=== PATIENT | male | born 1975 | race Hispanic/Latino ===

== ENCOUNTER 2024-01-29 16:31 | Inpatient (IN) | payer BC ==
[~2024-01-29] VITALS: Ht 177.8 cm; Wt 117.3 kg
[2024-01-29 17:04] LABS: BASOPHILS # (AUTO) 0.02 K/uL (0.00-0.20); BASOPHILS % (AUTO) 0.2 % (0.0-5.0); EOSINOPHILS # (AUTO) 0.05 K/uL (0.00-0.70); EOSINOPHILS % (AUTO) 0.6 % (0.0-8.0); IMMATURE GRANULOCYTE ABSOLUTE 0.02 K/uL (0-1); LYMPHOCYTES # (AUTO) 0.5 K/uL (1.0-4.8); LYMPHOCYTES % (AUTO) 5.2 % (21.0-51.0); MEAN CORPUSCULAR HEMOGLOBIN 25.9 pg (27.0-33.0); MEAN CORPUSCULAR HGB CONC 31.7 g/dL (32.0-36.0); MEAN CORPUSCULAR VOLUME 81.6 fL (79-99); MONOCYTES # (AUTO) 0.7 K/uL (0.1-1.0); MONOCYTES % (AUTO) 7.2 % (3.0-13.0); NEUTROPHILS # (AUTO) 7.8 K/uL (1.8-7.7); NEUTROPHILS % (AUTO) 86.6 % (40.0-77.0); PLATELET COUNT (AUTO) 268 K/uL (130-400); RED BLOOD CELL COUNT(AUTO) 4.29 MIL/uL (4.50-6.20); RED CELL DISTRIBUTION WIDTH 15.9 % (11.0-15.5)
--- NOTE | 2024-01-29 17:04 | EKG ---
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
--- NOTE | 2024-01-29 17:08 | ERN ---
General Chief Complaint: Shortness of Breath Stated Complaint: SOB X ONE MONTH Time Seen by MD: 16:32 Source: patient History of Present Illness Initial Comments Patient is a 48-year-old male coming in to be evaluated for shortness of breath. Patient states he was recently diagnosed with pneumonia. Patient was seen at another hospital and states she was being evaluated for possible tuberculosis. Patient states he could not wait any longer and left. Allergies: Coded Allergies: No Known Allergies (Unverified Allergy, Unknown, 01/29/24) Past Medical History Past Medical History: CHF, Heart Disease, Hypertension Medical History Other: LYME DISEASE Past Surgical History: Appendectomy Surgical History Other: SHOULDER ROS Dictation CONSTITUTIONAL: No chills, no fever, no weakness, no diaphoresis, no malaise. HEAD/FACE: No signs of trauma. EENT: No eye pain, no blurred vision, no tearing, no double vision, no ear pain, no ear discharge, no nose pain, no nasal congestion, no throat pain, no throat swelling, no mouth pain. RESPIRATORY: No cough, no orthopnea, no SOB, no stridor, no wheezing. CARDIOVASCULAR: No chest pain, no edema, no palpitations, no syncope. GASTROINTESTINAL/ABDOMINAL: No abdominal pain, no constipation, no diarrhea, no nausea, no vomiting. GENITOURINARY: No abnormal discharge, no dysuria, no frequent urination, no hematuria. No complaints of pain in the genitals. MUSCULOSKELETAL: No back pain, no gout, no joint pain, no joint swelling, no muscle pain, no muscle stiffness, no neck pain. INTEGUMENTARY: No change in color, no change in hair/nails, no dryness, no lesion, no lumps, no rash. NEUROLOGICAL/PSYCH: No anxiety, not depressed, no emotional problem, no headache, no numbness, no pre-existing deficit, no history of seizures, no tremors, no weakness. HEMATOLOGIC/LYMPHATIC: Not anemic, no history of blood clots, no apparent bleeding, no bruising, glands not swollen. All Systems Negative, Except as Noted. Physical Exam Physical Exam Dictation VITAL SIGNS: Reviewed. GENERAL APPEARANCE: Alert, oriented x3, no acute distress, obese. HEAD AND FACE: Non-traumatic. EYES: PERRL, pink conjunctivas, eyelid no trauma, anterior chamber clear. EARS: Pinnas intact and no signs of trauma or erythema. Ear canals clear and no discharge. TMs no erythema. NOSE: No discharge, no bleeding. OROPHARYNX: Mouth normal, teeth no caries, tongue pink. Pharynx clear, no erythema. Tonsils no exudates, no abscesses noted. Mucous membrane moist. NECK: Supple, non-tender, no thyromegaly, no masses, no JVD, no bruits. BREAST: Deferred. CHEST: No tenderness, no crepitus, no paradoxical movement, no retractions. LUNGS: Clear, well-ventilated, symmetric, no rales, no wheezing, no rhonchi, no stridor, good breath sounds bilaterally. HEART: Regular rate, regular rhythm, no murmur, no gallops. VASCULAR: No peripheral edema. ABDOMEN: Soft, positive bowel sounds, nondistended, no guarding, nontender, no rebound, no masses no hepatomegaly, no splenomegaly, no Jaimes's sign, no hernias. RECTAL: Deferred. GENITAL: Deferred. NEUROLOGICAL: Normal speech, gross motor function intact, gross sensory function intact. MUSCULOSKELETAL: Neck nontender, full range of motion, back nontender, full r matthew of motion. EXTREMITIES: Nontender, full range of motion. SKIN: Color pink, dry, no turgor, no rash, no lacerations, no abrasions, no contusions. LYMPHATICS: Deferred. Results Laboratory and Microbiology Lab and Micro Result Laboratory Tests Test 01/29/24 16:55 01/29/24 17:00 White Blood Count 9.0 K/uL (4.8-10.8) Red Blood Count 4.29 MIL/uL (4.50-6.20) L Hemoglobin 11.1 g/dL (14.0-18.0) L Hematocrit 35.0 % (42-54) L Mean Corpuscular Volume 81.6 fL (79-99) Mean Corpuscular Hemoglobin 25.9 pg (27.0-33.0) L Mean Corpuscular Hemoglobin Concent 31.7 g/dL (32.0-36.0) L Red Cell Distribution Width 15.9 % (11.0-15.5) H Platelet Count 268 K/uL (130-400) Mean Platelet Volume 10.6 fL (7.5-10.5) H Immature Granulocyte % (Auto) 0.2 % (0-1) Neutrophils (%) (Auto) 86.6 % (40.0-77.0) H Lymphocytes (%) (Auto) 5.2 % (21.0-51.0) L Monocytes (%) (Auto) 7.2 % (3.0-13.0) Eosinophils (%) (Auto) 0.6 % (0.0-8.0) Basophils (%) (Auto) 0.2 % (0.0-5.0) Neutrophils # (Auto) 7.8 K/uL (1.8-7.7) H Lymphocytes # (Auto) 0.5 K/uL (1.0-4.8) L Monocytes # (Auto) 0.7 K/uL (0.1-1.0) Eosinophils # (Auto) 0.05 K/uL (0.00-0.70) Basophils # (Auto) 0.02 K/uL (0.00-0.20) Absolute Immature Granulocyte (auto 0.02 K/uL (0-1) Nucleated Red Blood Cells 0.0 % (0.0-0.19) White Cell Morphology Comment See comments Prothrombin Time 12.6 SEC (9.6-11.6) H Prothromb Time International Ratio 1.18 (0.85-1.15) H Activated Partial Thromboplast Time 24.2 SEC (26.3-35.5) L Sodium Level 137 mmol/L (136-145) Potassium Level 4.1 mmol/L (3.5-5.1) Chloride Level 102 mmol/L (101-111) Carbon Dioxide Level 28 mmol/L (21-32) Blood Urea Nitrogen 11 mg/dL (7-18) Creatinine 1.2 mg/dL (0.5-1.3) Glomerular Filtration Rate Calc 75 mL/min (>90) Random Glucose 100 mg/dL (70-105) Lactic Acid Level 2.3 mmol/L (0.8-2.5) Total Calcium 8.1 mg/dL (8.5-10.1) L Magnesium Level 1.90 mg/dL (1.80-2.40) Total Creatine Kinase 451 U/L (21-232) *H Troponin I High Sensitivity 46 ng/L (4-75) B-Type Natriuretic Peptide 773 pg/mL (0-100) H Influenza Type A Antigen Negative For Type A Influenza Type B Antigen Negative For Type B SARS-CoV-2, RNA, NAAT NEGATIVE SARS CoV-2 Labs Reviewed?: Yes EKG/XRAY/US/CT/MRI EKG Comment 01/29/2024 time 1703 Ventricular rate 116 Sinus tachycardia [place] [address] wave elevation or depression X-RAY Comment [address] [place] [address] IMAGING REPORT Signed PATIENT: PRATEEK FERNANDEZ MR#: [id number] : 1975 SEX: M AGE: 48 LOCATION: [facility] ORDER [id number] STATUS: [facility] ER REPORT#: [id number] SERVICE 163 REASON: chest ORDERING PHYSICIAN: PRASHANT FLANAGAN MD PROCEDURE: CXR1VW - CHEST 1VW CHEST 1VW REASON: chest COMPARISON: None. FINDINGS: There is mild cardiomegaly accentuated by lordotic projection. There is some focal infiltrate in the right upper lobe which could be early or mild pneumonia. There is no pulmonary vascular congestion. There are no pleural effusions any thorax appears normal. IMPRESSION: 1. Right upper lobe infiltrate which could be early or mild pneumonia. 2. Mild cardiomegaly accentuated by a lordotic projection. DICTATED BY: ROSE GRAHAM MD DATE: 01/29/241726 ELECTRONICALLY SIGNED BY: ROSE GRAHAM MD DATE: 01/29/24 173 MDM MDM: Differential diagnosis: PULMONARY INFILTRATES, RIGHT LUNG PNEUMONIA, RULE OUT TB Rationale: Tests considered and ordered secondary to shared decision making include: Previous outside records reviewed: Old ER visits. Risk of complication and/or morbidity or mortality of patient management: None Medications-Per medication reconciliation Need for hospitalization: Patient does meet criteria for hospitalization. Need for emergency major/minor surgery: No There are no social concerns with this patient. Prescription drug management Prescriptions will include symptomatic care Patient's prior external medical records from other ER visits were reviewed by me as indicated. Prior testing and results from previous visits were reviewed. Prior tests were taken into account with medical decision making and resource utilization, independent historian/historians were used to obtain complete medical history. I independently interpreted the test that were performed, results were reviewed by me and considered findings on radiology if ordered. Medical management and examination interpretation discussions were had by me with other qualified healthcare professionals as indicated for the patient's care. BE ADMITTED UNDER THE CARE OF [facility] FOR ONGOING MANAGEMENT OF RIGHT SIDED PULMONARY INFILTRATES SUGGESTIVE OF PNEUMONIA VERSUS EARLY TUBERCULOSIS. ED Course Orders Procedure Category Date Status Time Cbc With Differential LAB 01/29/24 Complete 16:38 Prothrombin Time With LAB 01/29/24 Complete INR 16:38 B-Type Natriuretic LAB 01/29/24 Complete Peptide 16:38 Chest 1vw RAD 01/29/24 Resulted 16:38 12 Lead Ekg Tracing- EKG 01/29/24 Complete Technical 16:38 Magnesium LAB 01/29/24 Complete 16:38 Creatine Kinase, Total LAB 01/29/24 Complete 16:38 Troponin I High LAB 01/29/24 Complete Sensitivity 16:38 Urinalysis Profile LAB 01/29/24 Logged 16:38 Partial LAB 01/29/24 Complete Thromboplastin Time 16:38 Basic Metabolic Panel LAB 01/29/24 Complete 16:38 Covid Rna Naat LAB 01/29/24 Complete 16:40 Influenza Type A & B, LAB 01/29/24 Complete Rapid 16:40 Blood Cult ELADIO 01/29/24 In Process 16:41 Culture Urine ELADIO 01/29/24 Logged 16:41 Lactic Acid LAB 01/29/24 Complete 16:41 Ceftriaxone 1g Vial PHA 01/29/24 Complete (Rocephine 1g Inj) 18:00 Azithromycin 500mg+Ns PHA 01/29/24 In Process 250ml (Azithromyci 17:49 Current Medications Medications (Trade) Dose Ordered Sig/Ramon Route PRN Reason Start Time Stop Time Status Last Admin Dose Admin Azithromycin 250 ml @ 250 mls/hr Q24H STAT IVPB 01/29/24 17:49 01/29/24 18:48 01/29/24 18:05 Ceftriaxone Sodium (ROCEphine 1G INJ) 1 gm ONCE ONCE IVPB 01/29/24 18:00 01/29/24 18:01 DC 01/29/24 18:05 Vital Signs Date Time Temp Pulse Resp B/P (MAP) Pulse Ox O2 Delivery O2 Flow Rate FiO2 01/29/24 17:07 116 26 112/61 96 Nasal Cannula* 2 28 01/29/24 16:32 101.3 117 20 138/93 95 Room Air 0 Critical Care Note Comments CRITICAL CARE PROCEDURE NOTE AUTHORIZED AND PERFORMED BY: ME TOTAL CRITICAL CARE TIME: APPROXIMATELY 36 MINUTES DUE TO A HIGH PROBABILITY OF CLINICALLY SIGNIFICANT, LIFE THREATENING DETERIORATION, THE PATIENT REQUIRED MY HIGHEST LEVEL OF PREPAREDNESS TO INTER VENE EMERGENTLY AND I PERSONALLY SPENT THIS CRITICAL CARE TIME DIRECTLY AND PERSONALLY MANAGING THE PATIENT. THIS CRITICAL CARE TIME INCLUDED OBTAINING A HISTORY; EXAMINING THE PATIENT; PULSE OXIMETRY; ORDERING AND REVIEW OF STUDIES; ARRANGING URGENT TREATMENT WITH DEVELOPMENT OF A MANAGEMENT PLAN; EVALUATION OF PATIENT'S RESPONSE TO TREATMENT; FREQUENT REASSESSMENT; AND, DISCUSSIONS WITH OTHER PROVIDERS. THIS CRITICAL CARE TIME WAS PERFORMED TO ASSESS AND MANAGE THE HIGH PROBABILITY OF IMMINENT, LIFE-THREATENING DETERIORATION THAT COULD RESULT IN MULTI-ORGAN FAILURE. IT WAS EXCLUSIVE OF SEPARATELY BILLABLE PROCEDURES AND TREATING OTHER PATIENTS AND TEACHING TIME. PLEASE SEE MDM SECTION AND THE REST OF THE NOTE FOR FURTHER INFORMATION ON PATIENT ASSESSMENT AND TREATMENT. DX & DISP Disposition: Inpatient Decision to Admit Time: 18:42 Departure Impression: Primary Impression: Pneumonia involving right lung Additional Impressions: Tuberculosis, Sepsis Condition: Stable PRASHANT FLANAGAN MD Jan 29, 2024 17:08
[2024-01-29 17:20] LABS: INR 1.18 (0.85-1.15); PROTHROMBIN TIME 12.6 SEC (9.6-11.6)
[2024-01-29 17:21] LABS: B-TYPE NATRIURETIC PEPTIDE 773 pg/mL (0-100); PARTIAL THROMBOPLASTIN TIME 24.2 SEC (26.3-35.5)
[2024-01-29 17:28] LABS: CREATININE 1.2 mg/dL (0.5-1.3); POTASSIUM 4.1 mmol/L (3.5-5.1)
--- NOTE | 2024-01-29 17:30 | HMCIMG ---
CHEST 1VW REASON: chest COMPARISON: None. FINDINGS: There is mild cardiomegaly accentuated by lordotic projection. There is some focal infiltrate in the right upper lobe which could be early or mild pneumonia. There is no pulmonary vascular congestion. There are no pleural effusions any thorax appears normal. IMPRESSION: 1. Right upper lobe infiltrate which could be early or mild pneumonia. 2. Mild cardiomegaly accentuated by a lordotic projection.
[2024-01-29 17:42] LABS: MAGNESIUM 1.9 mg/dL (1.80-2.40)
[2024-01-29 17:54] LABS: INFLUENZA TYPE A Negative For Type A (NEGATIVE); INFLUENZA TYPE B Negative For Type B (NEGATIVE)
[2024-01-29 18:04] LABS: SARS-CoV-2, RNA, NAAT NEGATIVE SARS CoV-2 (NEGATIVE)
[2024-01-29] MEDS: AZITHROMYCIN 500MG+NS 250ML 250 ML IVPB STA (18:05)
[2024-01-29] MEDS: cefTRIAXone 1G VIAL IVPB ONE (18:05)
[2024-01-29] MEDS ORDERED: doCUSate SODIUM 100 MG CAP PO PRN (19:00)
[2024-01-29] MEDS ORDERED: acetaMINOPHEN 650 MG SUPPOSITORY RC PRN (19:00)
[2024-01-29] MEDS ORDERED: LAbetaLOL 20MG SYG IV PRN (19:00)
[2024-01-29] MEDS ORDERED: hydrALAZine 20MG/ML VIAL IV PRN (19:00)
--- NOTE | 2024-01-29 19:04 | HP ---
[facility] PH[facility] Date of Service: Jan 29, 2024 Time of Service: 19:03 Attending/supervising physicians: Dr. Real and Dr. Harshal Fitzpatrick HISTORY OF PRESENT ILLNESS: Mr. Eldridge is a 48-year-old male with history of CHF, heart disease, hypertension, Lyme disease who presented to [facility] ED for evaluation of worsening shortness of breath. Patient patient reported that he presented to [facility] ED on 01/11/2024 evening was admitted diagnosed with pneumonia and was placed on isolation for evaluated for possible tuberculosis. IP [facility] patient was receiving Zithromax IV, Rocephin IV, and Solu- Medrol. The patient reports that he did not like the care of a [facility] and left AMA on 01/13/2024. at bedside reports that the sputum results for TB were never done and they were never updated on the patient's status therefore the patient left AMA. EKG: Sinus tachycardia, heart rate 116 beats per minute. Chest x-ray: 1. Right upper lobe infiltrate which could be early or mild pneumonia. 2. Mild cardiomegaly accentuated by a lordotic projection. Remarkable lab results: Hemoglobin 11.1, hematocrit 35.0, RBC 4.29. Lactic acid 2.3, GFR 75, total calcium 8.1, magnesium 1.9, CK 451, BNP 773. In ED patient received Rocephin1 g IV, azithromycin 500 mg IV, Tylenol 650 mg. ED provider reported that sepsis alert the patient presented to the ED with a temperature 101.3F, heart rate 117, respirations 20 bpm, BP 138/93, 95% on room air, which prompted the system for sepsis alert. ED physician request patient be admitted with the diagnosis of pneumonia involving right lung, right-sided pulmonary infiltrates suggestive of pneumonia versus early tuberculosis, and sepsis. REVIEW OF SYSTEMS 12-point ROS reviewed with patient. All pertinent positives mentioned above. Otherwise negative, nonpertinent, or noncontributory. Past Medical History: CHF, Heart Disease, Hypertension, Lyme disease Past Surgical History: Appendectomy, shoulder surgery Past social history: Denied alcohol, tobacco + use of cocaine and marijuana Coded Allergies: No Known Allergies (Unverified Allergy, Unknown, 01/29/24) PHYSICAL EXAM GENERAL APPEARANCE: The patient is awake, alert, and oriented, in no acute cardiopulmonary distress. NEUROLOGICAL: Cranial nerves II-XII grossly intact. Motor is 5/5 in bilateral upper and lower extremities proximal to distal. No sensory deficits. HEENT: Face is symmetric. Pupils are equal and reactive. Extraocular movements are intact. NECK: Supple. No JVD. No thyromegaly. No submental, submandibular, pre- /postauricular, occipital or supraclavicular lymphadenopathy. CHEST: Normal chest expansion. No Telemetry. LUNGS: Diminished. Breathing is even and unlabored at rest. Absence of any rales, rhonchi or any wheezing. CARDIOVASCULAR: Regular. S1 and S2 normal. No appreciable rubs, murmurs or g allops. ABDOMEN: Soft, nontender, and nondistended. There is no rebound, voluntary gua rding, or rigidity. : Deferred. No Jesus. EXTREMITIES: Non-edematous and not cyanotic. No clubbing. Good capillary refill. SKIN: No skin breakdown. Vital Sign (Last 24 Hours) 01/29/24 01/29/24 16:32 17:07 Temp 101.3 Pulse 116 Resp 26 B/P (MAP) 112/61 Pulse Ox 96 O2 Delivery Nasal Cannula* O2 Flow Rate 2 FiO2 28 LABS: Laboratory: Test 01/29/24 17:00 01/29/24 16:55 Range/Units Influenza Type A Antigen Negative For Type A NEGATIVE Influenza Type B Antigen Negative For Type B NEGATIVE SARS-CoV-2, RNA, NAAT NEGATIVE SARS CoV-2 NEGATIVE White Blood Count 9.0 4.8-10.8 K/uL Red Blood Count 4.29 L 4.50-6.20 MIL/uL Hemoglobin 11.1 L 14.0-18.0 g/dL Hematocrit 35.0 L 42-54 % Mean Corpuscular Volume 81.6 79-99 fL Mean Corpuscular Hemoglobin 25.9 L 27.0-33.0 pg Mean Corpuscular Hemoglobin Concent 31.7 L 32.0-36.0 g/dL Red Cell Distribution Width 15.9 H 11.0-15.5 % Platelet Count 268 130-400 K/uL Mean Platelet Volume 10.6 H 7.5-10.5 fL Immature Granulocyte % (Auto) 0.2 0-1 % Neutrophils (%) (Auto) 86.6 H 40.0-77.0 % Lymphocytes (%) (Auto) 5.2 L 21.0-51.0 % Monocytes (%) (Auto) 7.2 3.0-13.0 % Eosinophils (%) (Auto) 0.6 0.0-8.0 % Basophils (%) (Auto) 0.2 0.0-5.0 % Neutrophils # (Auto) 7.8 H 1.8-7.7 K/uL Lymphocytes # (Auto) 0.5 L 1.0-4.8 K/uL Monocytes # (Auto) 0.7 0.1-1.0 K/uL Eosinophils # (Auto) 0.05 0.00-0.70 K/uL Basophils # (Auto) 0.02 0.00-0.20 K/uL Absolute Immature Granulocyte (auto 0.02 0-1 K/uL Nucleated Red Blood Cells 0.0 0.0-0.19 % White Cell Morphology Comment See comments Prothrombin Time 12.6 H 9.6-11.6 SEC Prothromb Time International Ratio 1.18 H 0.85-1.15 Activated Partial Thromboplast Time 24.2 L 26.3-35.5 SEC Sodium Level 137 136-145 mmol/L Potassium Level 4.1 3.5-5.1 mmol/L Chloride Level 102 101-111 mmol/L Carbon Dioxide Level 28 21-32 mmol/L Blood Urea Nitrogen 11 7-18 mg/dL Creatinine 1.2 0.5-1.3 mg/dL Glomerular Filtration Rate Calc 75 >90 mL/min Random Glucose 100 70-105 mg/dL Lactic Acid Level 2.3 0.8-2.5 mmol/L Total Calcium 8.1 L 8.5-10.1 mg/dL Magnesium Level 1.90 1.80-2.40 mg/dL Total Creatine Kinase 451 *H 21-232 U/L Troponin I High Sensitivity 46 4-75 ng/L B-Type Natriuretic Peptide 773 H 0-100 pg/mL Current Medications Medications (Trade) Dose Ordered Sig/Ramon Route PRN Reason Start Time Stop Time Status Last Admin Dose Admin Acetaminophen (TYLenol 325MG TAB) 650 mg Q6H PRN PO FEVER/MILD PAIN LEVEL 1-3 01/29/24 19:00 02/28/24 18:59 UNV Acetaminophen (TYLenol 650MG SUPPOSITORY) 650 mg Q6H PRN RC FEVER / MILD PAIN 1-3 IF NPO 01/29/24 19:00 02/28/24 18:59 UNV Azithromycin 250 ml @ 250 mls/hr Q24H STAT IVPB 01/29/24 17:49 01/29/24 18:48 DC 01/29/24 18:05 250 MLS/HR Ceftriaxone Sodium (ROCEphine 1G INJ) 1 gm DAILY15 IVP 01/30/24 15:00 02/09/24 14:59 UNV Docusate Sodium (COLace 100MG CAP) 100 mg BID PRN PO c 01/29/24 19:00 02/28/24 18:59 UNV Doxycycline Hyclate (Doxycycline 100mg+NS 250ml) 100 mg BID IV 01/29/24 23:00 02/08/24 22:59 UNV Enoxaparin Sodium (Lovenox) 40 mg DAILY SQ 01/30/24 09:00 02/29/24 08:59 UNV Famotidine (Pepcid 20mg Tab) 20 mg BID PO 01/29/24 21:00 02/28/24 20:59 UNV Hydralazine HCl (APRESOLine 20MG INJ) 10 mg Q6H PRN IV SBP GREATER THAN 180 01/29/24 19:00 02/28/24 18:59 UNV Insulin Human Regular (humuLIN R 100 UNIT/ML 3ML) INSULIN SLIDING SCAL... ACHS SQ 01/29/24 21:00 02/28/24 20:59 UNV Labetalol HCl (TRANdate 20MG SYG) 10 mg Q2H PRN IV SBP GREATER THAN 160 01/29/24 19:00 02/28/24 18:59 UNV Lactulose (Constulose 20gm/ 30ml Udcup) 20 gm Q6H PRN PO CONSTIPATION 01/29/24 19:00 02/28/24 18:59 UNV Ondansetron HCl (zoFRAN 4MG INJ) 4 mg Q6H PRN IVP NAUSEA/VOMITING 01/29/24 19:00 02/28/24 18:59 UNV Temazepam (restORIL 15 MG CAP) 15 mg HS PRN PO INSOMNIA/SLEEP 01/29/24 19:00 02/28/24 18:59 UNV DIAGNOSTICS / RADIOLOGY: [ ] ASSESSMENT: CHF exacerbation LVEF 20-25%, per [facility] echo on 01/13/2024 Grade 3 diastolic dysfunction, per [facility] echo on 01/13/2024 Multifocal pneumonia possible secondary to crack lung secondary to cocaine use Lung Infiltrates, rule out TB Negative for PE, per CTA on 01/11/2024 at [facility] Respiratory alkalosis Rhabdomyolysis, CK 451 Acute on chronic kidney disease, GFR 75 Anemia chronic disease Polysubstance abuse, + cocaine on 01/29/24 Hypertension Coronary artery disease Obese, BMI 37.4 History of lyme disease History of a polysubstance abuse positive cocaine and THC PLAN: -Admit to Medical floor with continuous telemetry monitoring -Monitor respiratory status closely. -Continue oxygen therapy as needed. Titrate oxygen prn to keep Spo2>/+=92%. - Start Zyrtec 10 mg p.o. q.h.s.. - Start Mucomyst 400 mg p.o. q.6 hours. - Start albuterol inhaler q.6 hours scheduled. -RT to provide IS and education on use. -Robitussin DM as needed cough. -Robitussin AC q.h.s. -Solu-Medrol IV daily. -CIWA -Aspirin 81 mg daily -Atorvastatin 40 mg daily. -Lasix 20 mg IV. b.i.d. in a.m. (we will start with light diuresis in am due to rhabdo, sepsis, and deferred to Cardiology.) -Consult cardiology and pulmonology. -total NS1 L bolus administered for sepsis alert, elevated lactic acid, rhabdo -Precaution and monitor for fluid overload due to CHF/elevated BNP, low LVEF. -Continue antibiotic therapy: Doxycycline IV and Rocephin IV -p.r.n. medications for: Fever, pain management, nausea, vomiting, constipation, hypertension -Glucometer checks AC & HS needed with insulin regular sliding scale coverage as needed. -Blood pressure checks every 4 hours and as needed. -Reconcile home medications once available. -Acid-fast bacilli (AFB) -AM labs: CBC, BMP, Mag, phos, TSH, A1c, CK, D-dimer. - Monitor renal and liver function - Monitor electrolytes and treat accordingly. -GI and DVT prophylaxis -Obtain records from [facility]. [facility] 1. Which of the following were discussed? Hospice Care - No Therapeutic options - Yes Advance Directives - Yes Other discussions - 2. Discussed with who? Patient 3. Voluntary nature of this service was explained to the patient? Yes 4. Amount of time spent - ___ more than 60 minutes ____ 5. Reviewed by Physician? (if this service was performed by NPP) Yes Patient seen and examined by me. Agree with note by BUSINESS AND SERVICES INSTRUCTOR SEE ADDITIONAL ORDERS PER CHART DISCUSSED WITH NURSING STAFF NICCI ACHARYAP Jan 29, 2024 19:04
[2024-01-29 19:39] LABS: APPEARANCE,URINE CLEAR (CLEAR); BILIRUBIN,URINE NEGATIVE (NEGATIVE); COLOR,URINE YELLOW (YELLOW); GLUCOSE, URINE (UA) NEGATIVE (NEGATIVE); KETONES,URINE NEGATIVE (NEGATIVE); LEUKOCYTE ESTERASE ,URINE NEGATIVE Leu/uL (NEGATIVE); NITRATE,URINE NEGATIVE (NEGATIVE); OCCULT BLOOD,URINE NEGATIVE (NEGATIVE); PH,URINE 5.5 (5.0-8.0); PROTEIN,URINE 100 mg/dL (NEGATIVE); UROBILINOGEN,URINE 0.2 mg/dL (0.2-1.0)
[2024-01-29 19:51] LABS: ABG BASE EXCESS -0.8 mmol/L (-2.0-3.0); ABG HCO3 21.9 mmol/L (21.0-28.0); ABG OXYGEN SATURATION 98.1 % (94.0-98.0); ABG PCO2 31 mmHg (35-48); ABG PH 7.466 (7.350-7.450); DEVICE COMMENT RR RN; PO2, ARTERIAL BG 105.1 mmHg (83.0-108.0); VENT MODE, BG 5LNC (ROOM AIR)
[2024-01-29 20:00] LABS: ADD UA MICROSCOPIC YES
[2024-01-29 20:06] LABS: BACTERIA,URINE RARE /HPF (None Seen); MUCUS,URINE RARE LPF (None Seen); RBC,URINE 0-1 /HPF (0-1)
[2024-01-29 20:50] VITALS: BP 98/61; PULSE 116; RESP 40; TEMP 98.1
[2024-01-29] MEDS: INSULIN humuLIN R 100 UNIT/ML 3ML SQ SCH (21:00)
[2024-01-29] MEDS: guaiFENesin-DM 200/20MG 10ML PO PRN (23:00)
[2024-01-29] MEDS: FAMOTIDINE 20MG TAB PO SCH (23:00)
[2024-01-29] MEDS: LACTULOSE 20 GM/30 ML UDCUP PO PRN (23:20)
[2024-01-29] MEDS: acetaMINOPHEN 325 MG TAB PO PRN (23:21)
[2024-01-29 23:24] VITALS: BP 135/91; PULSE 118; RESP 32; TEMP 100.6
[2024-01-29 23:25] VITALS: BP 135/91; PULSE 118; RESP 32; TEMP 100.6
[2024-01-29] MEDS: 0.9%NACL 1000ML 1,000 ML IV ONE (23:28)
[2024-01-30] VITALS (12 sets, daily range): BP systolic 87–127; BP diastolic 54–81; PULSE 78–114; RESP 19–28; TEMP 98.2–99; O2SAT 97–100
[2024-01-30] MEDS: guaiFENesin-coDEINE 5 ML SYRUP PO SCH (00:01)
[2024-01-30] MEDS ORDERED: PHARMACY COMMUNICATION MISC SCH (01:00)
[2024-01-30] MEDS ORDERED: 0.9%NACL 1000ML 1,000 ML IV SCH (01:00)
[2024-01-30] MEDS: DOXYCYCLINE 100MG+NS 250ML IV SCH (01:14)
--- NOTE | 2024-01-30 01:53 | NUR ---
NURSING NOTES ANGELA AC WITH CODEINE NOT GIVEN, PT. WAS DROWSY AND SLEEPY. KOLBY ACHARYA MADE AWARE.
[2024-01-30 02:04] LABS: AMPHET/METH SCREEN,URINE NEGATIVE (NEGATIVE); BARBITURATE SCREEN, URINE NEGATIVE (NEGATIVE); BENZODIAZEPINES SCREEN,URINE NEGATIVE (NEGATIVE); CANNABINOID SCREEN,URINE NEGATIVE (NEGATIVE); COCAINE SCREEN,URINE POSITIVE (NEGATIVE); OPIATE SCREEN,URINE NEGATIVE (NEGATIVE); PHENCYCLIDINE SCREEN,URINE NEGATIVE (NEGATIVE)
[2024-01-30 05:13] LABS: BASOPHILS # (AUTO) 0.01 K/uL (0.00-0.20); BASOPHILS % (AUTO) 0.1 % (0.0-5.0); EOSINOPHILS # (AUTO) 0.02 K/uL (0.00-0.70); EOSINOPHILS % (AUTO) 0.3 % (0.0-8.0); HEMATOCRIT 37.2 % (42-54); IMMATURE GRANULOCYTE ABSOLUTE 0.03 K/uL (0-1); LYMPHOCYTES # (AUTO) 0.7 K/uL (1.0-4.8); LYMPHOCYTES % (AUTO) 10.4 % (21.0-51.0); MEAN CORPUSCULAR HEMOGLOBIN 25.4 pg (27.0-33.0); MEAN CORPUSCULAR HGB CONC 30.6 g/dL (32.0-36.0); MEAN CORPUSCULAR VOLUME 82.9 fL (79-99); MONOCYTES # (AUTO) 0.7 K/uL (0.1-1.0); MONOCYTES % (AUTO) 10.1 % (3.0-13.0); NEUTROPHILS # (AUTO) 5.3 K/uL (1.8-7.7); NEUTROPHILS % (AUTO) 78.7 % (40.0-77.0); PLATELET COUNT (AUTO) 234 K/uL (130-400); RED BLOOD CELL COUNT(AUTO) 4.49 MIL/uL (4.50-6.20); RED CELL DISTRIBUTION WIDTH 15.9 % (11.0-15.5); WHITE BLOOD COUNT (AUTO) 6.7 K/uL (4.8-10.8)
[2024-01-30 05:53] LABS: HEMOGLOBIN A1C 5.5 % (4.0-6.0)
[2024-01-30] MEDS: ceTIRIzine HCL 5 MG TABLET PO SCH (06:16)
[2024-01-30 06:20] LABS: CREATININE 1.4 mg/dL (0.5-1.3); MAGNESIUM 1.9 mg/dL (1.80-2.40); PHOSPHORUS 3.6 mg/dL (2.5-4.9); POTASSIUM 4.4 mmol/L (3.5-5.1)
[2024-01-30 06:22] LABS: THYROID STIMULATING HORMONE 1.77 uIU/mL (0.36-3.74)
[2024-01-30] MEDS: ALBUTEROL INHALER 90MCG/INH IH SCH (08:00)
[2024-01-30] MEDS: furoSEMIDE 20MG VIAL IV SCH (08:43)
[2024-01-30] MEDS: ENOXAPARIN SODIUM 40 MG/0.4 ML SYRINGE SQ SCH (08:43)
[2024-01-30] MEDS: ASPIRIN 81MG CHEW TAB PO SCH (08:44)
--- NOTE | 2024-01-30 10:55 | CONS ---
[facility] Cardiology Consultation Note Cardiology consult dictated for Ifrah Quintero MD Date of service 01/30/2024 Chief complaint: Shortness of breath Reason for consult: Congestive heart failure History of present illness: This is a 48-year-old male with past medical history of hypertension came in with complaints of progressively worsening shortness of breath cough and fatigue. He was recently hospitalized at the beginning of the month at [facility] and left against medical advice. While he was there he was diagnosed with multifocal pneumonia possibly secondary to crack lung secondary to cocaine, acute cystitis polysubstance abuse positive for cocaine and THC and acute CHF exacerbation with BNP of 790. When he presented to [facility] he again complained of shortness of breath and was positive for cocaine. Troponin was a 46 and BNP of 773. Chest x-ray demonstrated right upper lobe infiltrate with questionable pneumonia versus tuberculosis. Patient is currently on respiratory isolation. Records from [facility] review and no 2D echocardiogram results found. Past medical history: Positive for hypertension, Lyme disease, congestive heart failure, polysubstance abuse. Negative for CVA TIA no PE no DVT no liver kidney thyroid disease. Past surgical history: Positive for right shoulder surgery and appendectomy Social history: Patient lives with family denies tobacco alcohol use is positive for cocaine was positive for THC at [facility] two weeks ago. Family history: Noncontributory Review of systems: 14 point review of systems performed pertinent positives and negatives discussed in HPI Physical exam: This morning he is afebrile with Blood pressure is 135/91 heart rate of 110 beats per minute and regular normal S1-S2 no rubs gallops murmurs noted. Neck is supple no jugular vein distention no carotid bruits. No pedal edema noted bilateral breath sounds with scattered crackles. Lower extremities no edema. The patient is alert awake and oriented. Assessment: Acute on chronic congestive diastolic heart failure (BNP 773) Pneumonia versus tuberculosis Polysubstance abuse Hypertension Plan: At this point we have a 48-year-old male who presented to the emergency department with complaints of increased shortness of breath. He was diagnosed with congestive heart failure Exacerbation he was febrile when he came in temperature of a 100.9 has been placed on antibiotics and is afebrile at this time 98.2 temperature. He is on IV antibiotics, respiratory isolation and is being diuresed with furosemide 20 mg IV every 12 hours. We will schedule echocardiogram and we will make medication adjustments as needed. Fluid restr iction daily weights and basic metabolic panel in a.m. ordered. ATTESTATION BY PHYSICIAN I have seen and examined the patient. I reviewed the documentation, medical decision making, and treatment plan as noted by the mid-level provider above. I agree with the findings and plan of care. IFRAH QUINTERO MD, [facility] Jan 30, 2024 10:55 IFRAH QUINTERO MD Jan 30, 2024 12:00
--- NOTE | 2024-01-30 11:34 | NUR ---
DCP: HOME SW spoke to DEANN Boyer [phone]. Sh lives with pt at his home. Pt states he is currently receiving unemployment. She assists pt as needed with his ADLS, home management and meal prep. Pt uses no DME or in home care services. PCP is Dianelys Gutierrez and uses [facility] for rx. DCP is home Addendum: 01/30/24 at 1137 by JOVAN PHILLIPS Amended: Links added.
[2024-01-30] MEDS: acetylCYSTeine 20% 200MG/ML 4ML VIAL PO SCH (11:55)
--- NOTE | 2024-01-30 12:17 | PN ---
[facility] PROGRESS NOTE Date of Service: Jan 30, 2024 Time of Service: 12:[address] Fitzpatrick SUBJECTIVE: [ 01/28 Mr. Eldridge is a 48-year-old male with history of CHF, heart disease, hypertension, Lyme disease who presented to [facility] ED for evaluation of worsening shortness of breath. Patient patient reported that he presented to [facility] ED on 01/11/2024 evening was admitted diagnosed with pneumonia and was placed on isolation for evaluated for possible tuberculosis. IP [facility] patient was receiving Zithromax IV, Rocephin IV, and Solu- Medrol. The patient reports that he did not like the care of a [facility] and left AMA on 01/13/2024. at bedside reports that the sputum results for TB were never done and they were never updated on the patient's status therefore the patient left AMA. EKG: Sinus tachycardia, heart rate 116 beats per minute. Chest x-ray: 1. Right upper lobe infiltrate which could be early or mild pneumonia. 2. Mild cardiomegaly accentuated by a lordotic projection. Remarkable lab results: Hemoglobin 11.1, hematocrit 35.0, RBC 4.29. Lactic acid 2.3, GFR 75, total calcium 8.1, magnesium 1.9, CK 451, BNP 773. 01/29 patient was seen by nurse practitioner and physician during rounding in room 417 comfortably lying in the bed. Patient was evaluated by atmospheric physics professor and at this moment they will recommend furosemide 40 mg b.i.d. and 2D echo. BNP 773. We are still pending further recommendations/evaluation by pressure dispatcher. Per case management patient to be discharged home once medically stable. Blood culture urine culture still pending. Patient continues to be on doxycycline and Rocephin. We will continue to monitor the patient a.m. labs] REVIEW OF SYSTEMS 12-point ROS reviewed with patient. All pertinent positives mentioned above. Otherwise negative, nonpertinent, or noncontributory. PHYSICAL EXAM GENERAL APPEARANCE: The patient is awake, alert, and oriented, in no acute cardiopulmonary distress. NEUROLOGICAL: Cranial nerves II-XII grossly intact. Motor is 5/5 in bilateral upper and lower extremities proximal to distal. No sensory deficits. HEENT: Face is symmetric. Pupils are equal and reactive. Extraocular movements are intact. NECK: Supple. No JVD. No thyromegaly. No submental, submandibular, pre-/posta uricular, occipital or supraclavicular lymphadenopathy. CHEST: Normal chest expansion. No Telemetry. LUNGS: Diminished. Breathing is even and unlabored at rest. Absence of any rales, rhonchi or any wheezing. CARDIOVASCULAR: Regular. S1 and S2 normal. No appreciable rubs, murmurs or gallops. ABDOMEN: Soft, nontender, and nondistended. There is no rebound, voluntary guarding, or rigidity. : Deferred. No Jesus. EXTREMITIES: Non-edematous and not cyanotic. No clubbing. Good capillary refill. SKIN: No skin breakdown. Vital Signs (last 8hr) Date Time Temp Pulse Resp B/P (MAP) Pulse Ox O2 Delivery O2 Flow Rate FiO2 01/30/24 12:00 98.2 85 20 87/54 96 Room Air 0.0 01/30/24 08:00 98.2 101 22 110/67 99 Nasal Cannula 2.0 LABS: Laboratory: Test 01/30/24 11:33 01/30/24 04:55 01/29/24 22:37 01/29/24 19:49 Range/Units Whole Blood Glucose 96 70-110 MG/DL White Blood Count 6.7 # 4.8-10.8 K/uL Red Blood Count 4.49 L 4.50-6.20 MIL/uL Hemoglobin 11.4 L 14.0-18.0 g/dL Hematocrit 37.2 L 42-54 % Mean Corpuscular Volume 82.9 79-99 fL Mean Corpuscular Hemoglobin 25.4 L 27.0-33.0 pg Mean Corpuscular Hemoglobin Concent 30.6 L 32.0-36.0 g/dL Red Cell Distribution Width 15.9 H 11.0-15.5 % Platelet Count 234 130-400 K/uL Mean Platelet Volume 10.4 7.5-10.5 fL Immature Granulocyte % (Auto) 0.4 0-1 % Neutrophils (%) (Auto) 78.7 H 40.0-77.0 % Lymphocytes (%) (Auto) 10.4 L 21.0-51.0 % Monocytes (%) (Auto) 10.1 3.0-13.0 % Eosinophils (%) (Auto) 0.3 0.0-8.0 % Basophils (%) (Auto) 0.1 0.0-5.0 % Neutrophils # (Auto) 5.3 1.8-7.7 K/uL Lymphocytes # (Auto) 0.7 L 1.0-4.8 K/uL Monocytes # (Auto) 0.7 0.1-1.0 K/uL Eosinophils # (Auto) 0.02 0.00-0.70 K/uL Basophils # (Auto) 0.01 0.00-0.20 K/uL Absolute Immature Granulocyte (auto 0.03 0-1 K/uL Nucleated Red Blood Cells 0.0 0.0-0.19 % Red Blood Cell Morphology See comments Sodium Level 137 136-145 mmol/L Potassium Level 4.4 3.5-5.1 mmol/L Chloride Level 101 101-111 mmol/L Carbon Dioxide Level 29 21-32 mmol/L Blood Urea Nitrogen 11 7-18 mg/dL Creatinine 1.4 H 0.5-1.3 mg/dL Glomerular Filtration Rate Calc 62 >90 mL/min Random Glucose 86 70-105 mg/dL Hemoglobin A1c 5.5 4.0-6.0 % Estimated Average Glucose (eAG) 111 70-126 mg/dL Total Calcium 7.8 L 8.5-10.1 mg/dL Phosphorus Level 3.6 2.5-4.9 mg/dL Magnesium Level 1.90 1.80-2.40 mg/dL Total Creatine Kinase 703 #*H 21-232 U/L Troponin I High Sensitivity 57.9 4-75 ng/L Thyroid Stimulating Hormone (TSH) 1.77 0.36-3.74 uIU/mL Lactic Acid Level 2.5 0.8-2.5 mmol/L Blood Gas Specimen Type Arterial Arterial Blood pH 7.466 H 7.350-7.450 Arterial Blood Partial Pressure CO2 31 L 35-48 mmHg Arterial Blood Partial Pressure O2 105.1 83.0-108.0 mmHg Arterial Blood HCO3 21.9 21.0-28.0 mmol/L Arterial Blood Oxygen Saturation 98.1 H 94.0-98.0 % Arterial Blood Base Excess -0.8 -2.0-3.0 mmol/L Blood Gas Temperature 37.0 35.5-37.0 CELSIUS Blood Gas Flow-by 5.00 0.00-15.00 L/min Blood Gas Vent Mode 5LNC ROOM AIR FiO2 40.0 % Blood Gas Specimen Comment RR RN Test 01/29/24 19:00 01/29/24 17:00 01/29/24 16:55 Range/Units Urine Color YELLOW YELLOW Urine Appearance CLEAR CLEAR Urine pH 5.5 5.0-8.0 Urine Specific [place] 1.020 1.001-1.031 Urine Protein 100 H NEGATIVE mg/dL Urine Glucose (UA) NEGATIVE NEGATIVE mg/dL Urine Ketones NEGATIVE NEGATIVE mg/dL Urine Occult Blood NEGATIVE NEGATIVE Urine Nitrate NEGATIVE NEGATIVE Urine Bilirubin NEGATIVE NEGATIVE mg/dL Urine Urobilinogen 0.2 0.2-1.0 mg/dL Urine Leukocyte Esterase NEGATIVE NEGATIVE [place]/uL Urine RBC 0-1 0-1 /HPF Urine WBC 2-5 H 0-1 /HPF Urine Bacteria RARE None Seen /HPF Urine Opiates Screen NEGATIVE NEGATIVE Urine Barbiturates Screen NEGATIVE NEGATIVE Urine Phencyclidine Screen NEGATIVE NEGATIVE Urine Amphetamines Screen NEGATIVE NEGATIVE Urine Benzodiazepines Screen NEGATIVE NEGATIVE Urine Cocaine Screen POSITIVE H NEGATIVE Urine Marijuana (THC) Screen NEGATIVE NEGATIVE Influenza Type A Antigen Negative For Type A NEGATIVE Influenza Type B Antigen Negative For Type B NEGATIVE SARS-CoV-2, RNA, NAAT NEGATIVE SARS CoV-2 NEGATIVE White Cell Morphology Comment See comments Prothrombin Time 12.6 H 9.6-11.6 SEC Prothromb Time International Ratio 1.18 H 0.85-1.15 Activated Partial Thromboplast Time 24.2 L 26.3-35.5 SEC B-Type Natriuretic Peptide 773 H 0-100 pg/mL Current Medications Medications (Trade) Dose Ordered Sig/Ramon Route PRN Reason Start Time Stop Time Status Last Admin Dose Admin Acetaminophen (TYLenol 325MG TAB) 650 mg Q6H PRN PO FEVER/MILD PAIN LEVEL 1-3 01/29/24 19:00 02/28/24 18:59 01/30/24 08:45 650 MG Acetaminophen (TYLenol 650MG SUPPOSITORY) 650 mg Q6H PRN RC FEVER / MILD PAIN 1-3 IF NPO 01/29/24 19:00 02/28/24 18:59 Acetylcysteine (MUComyst 20% 4ML) 400 mg Q6H PO 01/30/24 01:00 02/29/24 00:59 Albuterol Sulfate (Ventolin Hfa) 2 PUFFS Q6H IH 11/26/24 02:00 02/29/24 01:59 Aspirin (Aspirin 81mg Chew Tab) 81 mg DAILY PO 01/30/24 09:00 02/29/24 08:59 01/30/24 08:44 81 MG Atorvastatin Calcium (LIPItor 40MG) 40 mg HS PO 01/30/24 21:00 02/29/24 20:59 Azithromycin 250 ml @ 250 mls/hr Q24H STAT IVPB 01/29/24 17:49 01/29/24 18:48 DC 01/29/24 18:05 250 MLS/HR Ceftriaxone Sodium (ROCEphine 1G INJ) 1 gm DAILY15 IVP 01/30/24 15:00 02/09/24 14:59 Cetirizine HCl (ZYRtec 5 MG TABLET) 10 mg DAILY20 PO 01/30/24 01:10 02/29/24 01:09 Docusate Sodium (COLace 100MG CAP) 100 mg BID PRN PO c 01/29/24 19:00 02/28/24 18:59 Doxycycline Hyclate (Doxycycline 100mg+NS 250ml) 100 mg BID IV 01/29/24 23:00 02/08/24 22:59 01/30/24 08:43 100 MG Enoxaparin Sodium (Lovenox) 40 mg DAILY SQ 01/30/24 09:00 02/29/24 08:59 01/30/24 08:43 40 MG Famotidine (Pepcid 20mg Tab) 20 mg BID PO 01/29/24 21:00 02/28/24 20:59 01/30/24 08:43 20 MG Furosemide (LASix 20MG VIAL) 20 mg Q12H IV 01/30/24 09:00 01/30/24 11:01 DC 01/30/24 08:43 20 MG Furosemide (LASix 20MG VIAL) 40 mg Q12H IV 01/30/24 21:00 02/29/24 20:59 Guaifenesin/ Codeine Phosphate (RobiTUSSin AC 5 ML SYRUP) 20 ml DAILY20 PO 01/30/24 00:01 02/29/24 00:00 Guaifenesin/ Dextromethorphan (RobiTUSSin DM 200/20MG 10ML) 15 ml Q4H PRN PO COUGH 01/29/24 23:00 02/28/24 22:59 01/29/24 23:00 15 ML Hydralazine HCl (APRESOLine 20MG INJ) 10 mg Q6H PRN IV SBP GREATER THAN 180 01/29/24 19:00 02/28/24 18:59 Insulin Human Regular (humuLIN R 100 UNIT/ML 3ML) INSULIN SLIDING SCAL... ACHS SQ 01/29/24 21:00 02/28/24 20:59 Labetalol HCl (TRANdate 20MG SYG) 10 mg Q2H PRN IV SBP GREATER THAN 160 01/29/24 19:00 02/28/24 18:59 Lactulose (Constulose 20gm/ 30ml Udcup) 20 gm Q6H PRN PO CONSTIPATION 01/29/24 19:00 02/28/24 18:59 01/29/24 23:20 20 GM Lisinopril (Prinivil 2.5mg) 2.5 mg DAILY PO 01/31/24 09:00 03/01/24 08:59 Ondansetron HCl (zoFRAN 4MG INJ) 4 mg Q6H PRN IVP NAUSEA/VOMITING 01/29/24 19:00 02/28/24 18:59 Pharmacy Profile Note (Pharmacy Communication) 1 each ONCE MISC 01/30/24 01:00 01/30/24 01:26 DC Sodium Chloride 1,000 ml @ 100 mls/hr Q10H IV 01/30/24 01:00 01/30/24 01:42 DC Temazepam (restORIL 15 MG CAP) 15 mg HS PRN PO INSOMNIA/SLEEP 01/29/24 19:00 02/28/24 18:59 DIAGNOSTICS / RADIOLOGY: [ ] ASSESSMENT: CHF exacerbation LVEF 20-25%, per [facility] echo on 01/13/2024 Grade 3 diastolic dysfunction, per [facility] echo on 01/13/2024 Multifocal pneumonia possible secondary to crack lung secondary to cocaine use Lung Infiltrates, rule out TB Negative for PE, per CTA on 01/11/2024 at [facility] Respiratory alkalosis Rhabdomyolysis, CK 451 Acute on chronic kidney disease, GFR 75 Anemia chronic disease Polysubstance abuse, + cocaine on 01/29/24 Hypertension Coronary artery disease Obese, BMI 37.4 History of lyme disease History of a polysubstance abuse positive cocaine and THC PLAN: -Admit to Medical floor with continuous telemetry monitoring -Monitor respiratory status closely. -Continue oxygen therapy as needed. Titrate oxygen prn to keep Spo2>/+=92%. - Start Zyrtec 10 mg p.o. q.h.s.. - Start Mucomyst 400 mg p.o. q.6 hours. - Start albuterol inhaler q.6 hours scheduled. -RT to provide IS and education on use. -Robitussin DM as needed cough. -Robitussin AC q.h.s. -Solu-Medrol IV daily. -Aspirin 81 mg daily -Atorvastatin 40 mg daily. -Lasix 20 mg IV. b.i.d. in a.m. (we will start with light diuresis in am due to rhabdo, sepsis, and deferred to Cardiology.) -Consult cardiology and pulmonology. -total NS1 L bolus administered for sepsis alert, elevated lactic acid, rhabdo -Precaution and monitor for fluid overload due to CHF/elevated BNP, low LVEF. -Continue antibiotic therapy: Doxycycline IV and Rocephin IV -p.r.n. medications for: Fever, pain management, nausea, vomiting, constipation, hypertension -Glucometer checks AC & HS needed with insulin regular sliding scale coverage as needed. -Acid-fast bacilli (AFB) -AM labs. - Monitor renal and liver function - Monitor electrolytes and treat accordingly. -GI and DVT prophylaxis ATTESTATION BY PHYSICIAN I have seen and examined the patient. I reviewed the documentation, medical decision making, and treatment plan as noted by the mid-level provider above. I agree with the findings and plan of care. Kesha Fitzpatrick MD, [employer] Jan 30, 2024 12:17
[2024-01-30] MEDS: acetylCYSTeine 20% 200MG/ML 4ML VIAL IH SCH (14:30)
--- NOTE | 2024-01-30 14:37 | CONS ---
[facility] CONSULTATION NOTE Date Patient Seen: Jan 30, 2024 Time of Visit: 14:37 Supervising Physician: [Dr. Landrum] Reason for Consultation: [Pneumonia, r/o TB] Primary Care Physician: [[facility]] Outpatient Specialists: [ ] Inpatient Consults: [[facility]-pulmonary] PROBLEM LIST: CHF exacerbation LVEF 20-25%, per [facility] echo on 01/13/2024 Grade 3 diastolic dysfunction, per [facility] echo on 01/13/2024 Multifocal pneumonia possible secondary to crack lung secondary to cocaine use Lung Infiltrates, rule out TB Negative for PE, per CTA on 01/11/2024 at [facility] Respiratory alkalosis Rhabdomyolysis, CK 707 Acute on chronic kidney disease, GFR 75 Anemia chronic disease Polysubstance abuse, + cocaine on 01/29/24 Hypertension Coronary artery disease Obese, BMI 37.4 History of lyme disease History of a polysubstance abuse positive cocaine and THC Plan: Order CT chest without contrast Obtain records from [facility] Pending AFB results Pending echocardiogram Follow urine and blood culture PRN duonebs, supplemental oxygen if needed Discontinue lasix in rhabdomyolysis Defer fluids given hx of systolic heart failure Continue doxycycline HPI: [Mr. Eldridge is a 48-year-old male with history of CHF, heart disease, hypertension, Lyme disease who presented to [facility] ED for evaluation of worsening shortness of breath. Patient patient reported that he presented to [facility] ED on 01/11/2024 evening was admitted diagnosed with pneumonia and was placed on isolation for evaluated for possible tuberculosis. IP [facility] patient was receiving Zithromax IV, Rocephin IV, and Solu- Medrol. The patient reports that he did not like the care of a [facility] and left AMA on 01/13/2024. at bedside reports that the sputum results for TB were never done and they were never updated on the patient's status therefore the patient left AMA. EKG: Sinus tachycardia, heart rate 116 beats per minute. Chest x-ray: 1. Right upper lobe infiltrate which could be early or mild pneumonia. 2. Mild cardiomegaly accentuated by a lordotic projection. Remarkable lab results: Hemoglobin 11.1, hematocrit 35.0, RBC 4.29. Lactic acid 2.3, GFR 75, total calcium 8.1, magnesium 1.9, CK 451, BNP 773. [facility] is consulted for pneumonia and r/o TB. Patient was evaluated at bedside. Has collected AFB sputum samples, pending analysis. He is on room air, in no acute distress. Admits productive cough and occasional blood streaked sputum. No significant weight loss, and has actually gained about 15 lbs recently. No hx of TB, has recently traveled to [place] for medical evaluation. Patient also reports being in [facility] recently but did not go to [facility]. His labs reveal slightly elevated creatinine to 1.4. His CK is also increased to 707. He continues on lasix 20mg IV BID.] PAST MEDICAL HX: see above PAST SURGICAL HX: noncontributory SOCIAL HISTORY: No tobacco, ETOH, or illicit drug use Coded Allergies: No Known Allergies (Unverified Allergy, Unknown, 01/29/24) REVIEW OF SYSTEMS: 12 point ROS reviewed with patient. Pertinent positives mentioned above. Otherwise negative. PHYSICAL EXAM: GENERAL: alert, weak, awake oriented x 3 HEENT: EOMI, Sclera non icteric, moist mucosa NECK: Supple, no JVD, trachea midline LUNGS: Clear breath sounds bilaterally. No wheezes HEART: Regular rate and rhythm. Normal S1 and S2, without murmurs ABD: Abdomen soft, nontender. Bowel sounds present EXT: No clubbing cyanosis, 2+ bilateral edema NEURO: Alert and oriented to person, follows commands Vital Signs (last 8hr) Date Time Temp Pulse Resp B/P (MAP) Pulse Ox O2 Delivery O2 Flow Rate FiO2 01/30/24 12:40 102 97/69 01/30/24 12:23 80 20 N/Cannula Low lpm 2.0 28 01/30/24 12:00 98.2 85 20 87/54 96 Room Air 0.0 01/30/24 08:00 98.2 101 22 110/67 99 Nasal Cannula 2.0 01/30/24 08:00 99 Nasal Cannula* 2 28 LABS: Hematology Labs: Test 01/30/24 04:55 01/29/24 16:55 Range/Units White Blood Count 6.7 # 4.8-10.8 K/uL Red Blood Count 4.49 L 4.50-6.20 MIL/uL Hemoglobin 11.4 L 14.0-18.0 g/dL Hematocrit 37.2 L 42-54 % Mean Corpuscular Volume 82.9 79-99 fL Mean Corpuscular Hemoglobin 25.4 L 27.0-33.0 pg Mean Corpuscular Hemoglobin Concent 30.6 L 32.0-36.0 g/dL Red Cell Distribution Width 15.9 H 11.0-15.5 % Platelet Count 234 130-400 K/uL Mean Platelet Volume 10.4 7.5-10.5 fL Immature Granulocyte % (Auto) 0.4 0-1 % Neutrophils (%) (Auto) 78.7 H 40.0-77.0 % Lymphocytes (%) (Auto) 10.4 L 21.0-51.0 % Monocytes (%) (Auto) 10.1 3.0-13.0 % Eosinophils (%) (Auto) 0.3 0.0-8.0 % Basophils (%) (Auto) 0.1 0.0-5.0 % Neutrophils # (Auto) 5.3 1.8-7.7 K/uL Lymphocytes # (Auto) 0.7 L 1.0-4.8 K/uL Monocytes # (Auto) 0.7 0.1-1.0 K/uL Eosinophils # (Auto) 0.02 0.00-0.70 K/uL Basophils # (Auto) 0.01 0.00-0.20 K/uL Absolute Immature Granulocyte (auto 0.03 0-1 K/uL Nucleated Red Blood Cells 0.0 0.0-0.19 % Red Blood Cell Morphology See comments White Cell Morphology Comment See comments Chemistry Labs: Test 01/30/24 11:33 01/30/24 04:55 01/29/24 22:37 01/29/24 16:55 Range/Units Whole Blood Glucose 96 70-110 MG/DL Sodium Level 137 136-145 mmol/L Potassium Level 4.4 3.5-5.1 mmol/L Chloride Level 101 101-111 mmol/L Carbon Dioxide Level 29 21-32 mmol/L Blood Urea Nitrogen 11 7-18 mg/dL Creatinine 1.4 H 0.5-1.3 mg/dL Glomerular Filtration Rate Calc 62 >90 mL/min Random Glucose 86 70-105 mg/dL Hemoglobin A1c 5.5 4.0-6.0 % Estimated Average Glucose (eAG) 111 70-126 mg/dL Total Calcium 7.8 L 8.5-10.1 mg/dL Phosphorus Level 3.6 2.5-4.9 mg/dL Magnesium Level 1.90 1.80-2.40 mg/dL Total Creatine Kinase 703 #*H 21-232 U/L Troponin I High Sensitivity 57.9 4-75 ng/L Thyroid Stimulating Hormone (TSH) 1.77 0.36-3.74 uIU/mL Lactic Acid Level 2.5 0.8-2.5 mmol/L B-Type Natriuretic Peptide 773 H 0-100 pg/mL Coagulation Labs: Test 01/29/24 16:55 Range/Units Prothrombin Time 12.6 H 9.6-11.6 SEC Prothromb Time International Ratio 1.18 H 0.85-1.15 Activated Partial Thromboplast Time 24.2 L 26.3-35.5 SEC DIAGNOSTICS / RADIOLOGY RESULTS: [CHEST 1VW REASON: chest COMPARISON: None. FINDINGS: There is mild cardiomegaly accentuated by lordotic projection. There is some focal infiltrate in the right upper lobe which could be early or mild pneumonia. There is no pulmonary vascular congestion. There are no pleural effusions any thorax appears normal. IMPRESSION: 1. Right upper lobe infiltrate which could be early or mild pneumonia. 2. Mild cardiomegaly accentuated by a lordotic projection.] PLAN NEURO: Minimize central acting medications as possible. Maintain fall precautions, adequate lighting during the day PULMONARY: Supplemental 02 as needed. Maintain aspiration precautions at all times CARDIOVASCULAR: Follow hemodynamics. Vital signs per facility protocol GI & NUTRITION: Continue with nutritional support. Continue stool softeners and laxatives as needed. KIDNEYS & ELECTROLYTES: Strict monitoring of intake, output and overall fluid balance. Avoid nephrotoxic medications to the extent possible. Medications to be dosed according to renal function. Monitor electrolytes and replace as needed ENDOCRINE: Maintain blood glucose between 100-180 at all times. Hypoglycemia protocol in place INFECTIOUS DISEASE: Trend temperature, WBC and procalcitonin level Follow cultures, deescalate antibiotics as soon as possible. Panculture if new onset fever ONCOLOGY/HEMATOLOGY/COAGULATION: Monitor for s/s of bleeding Monitor hemoglobin, coagulation studies as needed SKIN: Pressure ulcer prevention per facility protocol Specialty mattress ORTHO/REHAB: Continue PT/OT Prophylaxis: Continue GI and DVT prophylaxis Code Status: Full Resuscitation Disposition: TBD Other: Total patient care time exceeds 51 minutes excluding all procedures. BEASLEY,STEPHEN A PA Jan 30, 2024 14:37
--- NOTE | 2024-01-30 14:44 | NUR ---
Acetylcysteine 20% 4ml was ordered for sean cordero every 6 hrs but no bronchodilator was ordered. a bronchodilator must be ordered in order to administer with acetylcysteine. side effects alone with this medication will result in bronchospasms.
[2024-01-30] MEDS: cefTRIAXone 1G VIAL IVP SCH (17:01)
--- NOTE | 2024-01-30 18:43 | HMCSR ---
APPROVED REPORT EXAM: Two-dimensional and M-mode echocardiogram with Doppler and color Doppler. Study Details: Hx: CHF, Heart Disease, Hypertension, Lyme disease INDICATION ICD: Congestive heart failure 2D Dimensions RVDd5.3 cmLVEF(%)46.3 (>50%)LVED Vol(simp.)238.2 mL IVSd1.2 (0.7-1.1cm)FS(%)24 %LVES Vol(simp.)178.5 mL LVDd6.3 (3.8-5.6cm)LA (2D)5.9 (1.6-4.0cm)LVEF(%, simp.)25 % PWd1.6 (0.7-1.1cm)Ao Root(2D)3.6 (2.0-3.7cm)LA ESV INDEX (4CH)50.20 mL/m2 IVSs1.5 cmLVOT diam2.2 (1.8-2.4cm)LA ESV INDEX (2CH)66.00 mL/m2 LVDs4.8 (2.5-4.0cm)IVC diam2.5 cm PWs1.8 cm Deformation Strain Apical 4-8.0 % Apical 2-5.0 % Apical 3-6.0 % Global Strain-6.0 % Aortic Valve AoV VTI0.1 mAo Mean GR1.0 mmHgLVOT VTI0.11 m WILLIAM (VMAX)5.1 cm2Al P1/2T632 msAVA (VTI) 5.1 cm2 Mitral Valve MV E Bztd612.5 cm/sDECEL Pgah398 ms MV A Vmax60.7 cm/sP 1/2 T34 ms E/A ratio1.9MVA (PHT)6.5 cm2 MR Max PG39 mmHg TDI E/E' Jihfgq82.4E/E' Rqbodvv09.4 Medial E' Peak V6.10 cm/sLateral E' Peak V7.30 cm/s Pulmonary Valve PV VTI0.09 mPV Mean GR1 mmHg Tricuspid Valve TR Vmax1.8 m/sRAP (EST) 15 zmUxZYFJ46.0 mmHg TR Peak GR13.0 mmHg Left Ventricle The left ventricle is severely dilated. There is global hypokinesis of the left ventricle. Mild casie ntric left ventricular hypertrophy. LVEF is 25-30%. Stage II, diastolic dysfunction. Right Ventricle The right ventricle is severely dilated. Right ventricular systolic function is reduced. Atria The left atrium is severely dilated. The right atrium is severely dilated. Aortic Valve Aortic valve is trileaflet and opens well. Mild aortic regurgitation is present. There is no aortic v alvular stenosis. Mitral Valve The mitral valve is mildly thickened.Anterior mitral valve leaflet is prolapsed. There is moderate mi tral valve regurgitation noted. There is no mitral valve stenosis. Tricuspid Valve The tricuspid valve is normal in structure and function. There is moderate tricuspid valve regurgitat ion noted. Pulmonic Valve The pulmonary valve is normal in structure and function. There is mild pulmonic valvular regurgitatio n. Great Vessels The aortic root is normal in size. IVC is dilated and collapses <50% with inspiration. Pericardium No pericardial effusion. Other Information Quality : Adequate Conclusion The left ventricle is severely dilated. Mild concentric left ventricular hypertrophy. LVEF is 25-30%. Stage II, diastolic dysfunction. There is global hypokinesis of the left ventricle. The right ventricle is severely dilated. Right ventricular systolic function is reduced. Mild aortic regurgitation is present. There is moderate mitral valve regurgitation noted. There is moderate tricuspid valve regurgitation noted.
--- NOTE | 2024-01-30 20:18 | HMCIMG ---
CT CHEST W/O CONTRAST HISTORY: Possible TB COMPARISON: None TECHNIQUE: Multiple sequential axial images of the chest were obtained from the thoracic inlet through upper abdomen. Patient was not given contrast through intravenous route. FINDINGS: There are bilateral reticular nodular pulmonary infiltrates. Respiratory tuberculosis cannot be excluded and clinical correlation is recommended. Fatty changes of the liver are noted. Tiny right pleural effusion is seen. There is no evidence of pneumothorax. There are normal size mediastinal and hilar lymph nodes. The heart is not enlarged. Degenerative changes of the thoracolumbar spine are present. There is no evidence of adrenal nodule. Tubular shaped radiopaque density is seen in the stomach may be related to postop changes versus foreign body. IMPRESSION: 1. There are bilateral reticular nodular pulmonary infiltrates. Respiratory tuberculosis cannot be excluded and clinical correlation is recommended. Fatty changes of the liver are noted. Tiny right pleural effusion is seen. CT was performed with one or more following dose reduction techniques: automated exposure control, adjustment of the mA and kv according to patient's size, or use of a iterative reconstruction technique.
[2024-01-30] MEDS ORDERED: furoSEMIDE 20MG VIAL IV SCH (21:00)
[2024-01-30] MEDS: atorVAStatin 40 MG TABLET PO SCH (21:37)
--- NOTE | 2024-01-30 21:44 | NUR ---
PT LAYING IN BED WITH THE HEAD OF THE BED ELEVATED.PT DOES NOT APPEAR TO BE IN ANY DISTRESS.INSTRUCTED PT TO USE THE CALL LIGHT FOR ANY ASSISTANCE WHEN NEEDED. PT UNDERSTOOD BED IS LOW AND LOCKED CALL LIGHT WITHIN REACH .
--- NOTE | 2024-01-30 22:52 | NUR ---
CALL FROM NICCI ACHARYA NP . PER SENIOR RESEARCH ENGINEER SHE WILL PUT IN ORDER FOR MUCOMYST MEDICATION TO BE DISCONTINUED . NO NEW ORDERS AT THE MOMENT .
[2024-01-31] VITALS (13 sets, daily range): BP systolic 82–132; BP diastolic 56–80; PULSE 77–111; RESP 18–28; TEMP 96.7–98.6; O2SAT 97–100
[2024-01-31 04:54] LABS: BASOPHILS # (AUTO) 0.02 K/uL (0.00-0.20); BASOPHILS % (AUTO) 0.2 % (0.0-5.0); EOSINOPHILS # (AUTO) 0.07 K/uL (0.00-0.70); EOSINOPHILS % (AUTO) 0.8 % (0.0-8.0); HEMATOCRIT 34.7 % (42-54); IMMATURE GRANULOCYTE ABSOLUTE 0.05 K/uL (0-1); LYMPHOCYTES # (AUTO) 0.8 K/uL (1.0-4.8); LYMPHOCYTES % (AUTO) 9.3 % (21.0-51.0); MEAN CORPUSCULAR HEMOGLOBIN 26.2 pg (27.0-33.0); MEAN CORPUSCULAR HGB CONC 31.7 g/dL (32.0-36.0); MEAN CORPUSCULAR VOLUME 82.6 fL (79-99); MONOCYTES # (AUTO) 0.9 K/uL (0.1-1.0); NEUTROPHILS # (AUTO) 6.5 K/uL (1.8-7.7); NEUTROPHILS % (AUTO) 78.1 % (40.0-77.0); PLATELET COUNT (AUTO) 232 K/uL (130-400); RED CELL DISTRIBUTION WIDTH 15.8 % (11.0-15.5); WHITE BLOOD COUNT (AUTO) 8.4 K/uL (4.8-10.8)
[2024-01-31] MEDS: ondanSETRON 4MG INJ IVP PRN (05:11)
[2024-01-31 05:21] LABS: ALBUMIN 2.6 g/dL (3.5-5.0); CREATININE 1.5 mg/dL (0.5-1.3); MAGNESIUM 1.8 mg/dL (1.80-2.40); POTASSIUM 4.5 mmol/L (3.5-5.1); TOTAL PROTEIN, SERUM 5.7 g/dL (6.0-8.3)
--- NOTE | 2024-01-31 05:47 | PN ---
[facility] Cardiology Progress Note CARDIOLOGY PROGRESS NOTE JANUARY 31, 2024 Problems: 1. Acute on chronic combined systolic and diastolic heart failure with a BNP level of 773 2. Dilated cardiomyopathy with ejection fraction of 25-30% and moderate aortic regurgitation, moderate mitral valve regurgitation 3. Bilateral reticulonodular pulmonary infiltrates of concern for possible TB versus pneumonia 4. Polysubstance abuse including cocaine 5. Hypertension 6. Remote history of Lyme disease Blood pressure is 116/70 heart rate is 100 per minute the patient is afebrile white count 8.4 hemoglobin 11 platelet count [id number]. Glucose 96. The patient continues on aspirin insulin scale antibiotics atorvastatin Lovenox for DVT prophylaxis famotidine lisinopril. He received a dose of 2.5 mg of lisinopril last night for his left ventricular dysfunction but blood pressure had dropped this morning. We will hold lisinopril and observe. Prognosis is guarded. At the present time because of the low blood pressure she is not a candidate for beta blockers OLESYA inhibitors or arteries. If once blood pressure improves we will try initiating spironolactone. IFRAH QUINTERO MD Jan 31, 2024 05:47
--- NOTE | 2024-01-31 06:03 | NUR ---
PAGED PERSON PSYCH ASSISTANT FOR HOSPITALIST REGARDING PTS MAGNESIUM LEVEL OF 1.8. CALL BACK FROM SHERRI ATKINS ,UPDATED HER ON PT MAGNESIUM LEVEL OF 1.8. PER UNEMPLOYMENT SPECIALIST ORDER MAGNESIUM PROTOCOL.
--- NOTE | 2024-01-31 06:03 | NUR ---
CALL BACK FROM JUDE POLANCO PRINCIPAL EMBEDDED SOFTWARE ENGINEER FOR PTS MAGNESIUM LEVEL OF 1.8.UPDATED PRINCIPAL EMBEDDED SOFTWARE ENGINEER OF PTS TOTAL CREATINE KINASE OF 703 FOR THIS MORNINGS LABS.
[2024-01-31] MEDS: MAGNESIUM 2GM PREMIX 50ML 50 ML IV PRN (07:34)
[2024-01-31] MEDS ORDERED: LISINOPRIL 2.5 MG TABLET PO SCH (09:00)
--- NOTE | 2024-01-31 09:42 | PN ---
[facility] PROGRESS NOTE Date Patient Seen: Jan 31, 2024 Time of Visit: 09:38 Supervising Physician: [Dr. Landrum] Primary Care Physician: [[facility]] Outpatient Specialists: [ ] Inpatient Consults: [[facility]] PROBLEM LIST: CHF exacerbation LVEF 25-30%, per [facility] echo on 01/13/2024 Grade 2 diastolic dysfunction, per echo 01/30/2024 Multifocal pneumonia possible secondary to crack lung secondary to cocaine use Lung Infiltrates, rule out TB Negative for PE, per CTA on 01/11/2024 at [facility] Respiratory alkalosis Rhabdomyolysis, CK 707 Acute on chronic kidney disease, GFR 75 Anemia chronic disease Polysubstance abuse, + cocaine on 01/29/24 Hypertension Coronary artery disease Obese, BMI 37.4 History of lyme disease History of a polysubstance abuse positive cocaine and THC Plan: Pulmonary toileting, CPT/IS, Start pulmicort Order legionella, mycoplasma pneumonia labs Obtain sputum culture HIV/Hep screening Obtain records from [facility] Pending AFB results Echocardiogram abnormal Follow urine and blood culture PRN duonebs, supplemental oxygen if needed Discontinue lasix in rhabdomyolysis Defer fluids given hx of systolic heart failure Continue doxycycline and rocephin Patient will need to repeat CT chest outpatient in 4-6 weeks INTERVAL HISTORY: [Pressure has been soft overnight but MAP is adequate with most recent MAP at 89. No fever, patient continues on supplemental oxygen. His CT of the chest revealed bilateral reticular nodular pulmonary infiltrates with TB not excluded. Patient continues with excessive phlegm production. BNP shows slightly worsening creatinine of 1.5, mild hyponatremia at 131, no other electrolyte derangement. His Lasix was discontinued yesterday, CK remains elevated at 703. WBC is normal at 8.4. LFT's also slightly elevated at 96 AST and ALT. Pending AFB culture] REVIEW OF SYSTEMS: 12 point ROS reviewed with patient. Pertinent positives mentioned above. Otherwise negative. PHYSICAL EXAM: GENERAL: alert, weak, awake oriented x 3 HEENT: EOMI, Sclera non icteric, moist mucosa NECK: Supple, no JVD, trachea midline LUNGS: Clear breath sounds bilaterally. No wheezes HEART: Regular rate and rhythm. Normal S1 and S2, without murmurs ABD: Abdomen soft, nontender. Bowel sounds present EXT: No clubbing cyanosis, 2+ bilateral edema NEURO: Alert and oriented to person, follows commands Vital Signs (last 8hr) Date Time Temp Pulse Resp B/P (MAP) Pulse Ox O2 Delivery O2 Flow Rate FiO2 01/31/24 07:30 98.2 81 20 107/80 100 Room Air 21 01/31/24 06:23 85 20 N/Cannula Low lpm 3.0 32 01/31/24 05:20 90/72 01/31/24 04:35 98.6 104 28 82/56 98 Nasal Cannula 2.0 LABS: Hematology Labs: Test 01/31/24 04:34 01/30/24 04:55 01/29/24 16:55 Range/Units White Blood Count 8.4 # 4.8-10.8 K/uL Red Blood Count 4.20 L 4.50-6.20 MIL/uL Hemoglobin 11.0 L 14.0-18.0 g/dL Hematocrit 34.7 L 42-54 % Mean Corpuscular Volume 82.6 79-99 fL Mean Corpuscular Hemoglobin 26.2 L 27.0-33.0 pg Mean Corpuscular Hemoglobin Concent 31.7 L 32.0-36.0 g/dL Red Cell Distribution Width 15.8 H 11.0-15.5 % Platelet Count 232 130-400 K/uL Mean Platelet Volume 10.9 H 7.5-10.5 fL Immature Granulocyte % (Auto) 0.6 0-1 % Neutrophils (%) (Auto) 78.1 H 40.0-77.0 % Lymphocytes (%) (Auto) 9.3 L 21.0-51.0 % Monocytes (%) (Auto) 11.0 3.0-13.0 % Eosinophils (%) (Auto) 0.8 0.0-8.0 % Basophils (%) (Auto) 0.2 0.0-5.0 % Neutrophils # (Auto) 6.5 1.8-7.7 K/uL Lymphocytes # (Auto) 0.8 L 1.0-4.8 K/uL Monocytes # (Auto) 0.9 0.1-1.0 K/uL Eosinophils # (Auto) 0.07 0.00-0.70 K/uL Basophils # (Auto) 0.02 0.00-0.20 K/uL Absolute Immature Granulocyte (auto 0.05 0-1 K/uL Nucleated Red Blood Cells 0.0 0.0-0.19 % Red Blood Cell Morphology See comments White Cell Morphology Comment See comments Chemistry Labs: Test 01/31/24 05:12 01/31/24 04:34 01/30/24 04:55 01/29/24 22:37 Range/Units Whole Blood Glucose 96 70-110 MG/DL Bedside Glucose Comment Notified Nurse Sodium Level 131 L 136-145 mmol/L Potassium Level 4.5 3.5-5.1 mmol/L Chloride Level 97 L 101-111 mmol/L Carbon Dioxide Level 30 21-32 mmol/L Blood Urea Nitrogen 14 7-18 mg/dL Creatinine 1.5 H 0.5-1.3 mg/dL Glomerular Filtration Rate Calc 57 >90 mL/min Random Glucose 100 70-105 mg/dL Total Calcium 7.9 L 8.5-10.1 mg/dL Magnesium Level 1.80 1.80-2.40 mg/dL Total Bilirubin 1.0 0.2-1.0 mg/dL Aspartate Amino Transf (AST/SGOT) 96 H 10-37 U/L Alanine Aminotransferase (ALT/SGPT) 96 H 12-78 U/L Alkaline Phosphatase 65 50-136 U/L Total Creatine Kinase 703 *H 21-232 U/L Troponin I High Sensitivity 43.9 4-75 ng/L B-Type Natriuretic Peptide 776 H 0-100 pg/mL Total Protein 5.7 L 6.0-8.3 g/dL Albumin 2.6 L 3.5-5.0 g/dL Hemoglobin A1c 5.5 4.0-6.0 % Estimated Average Glucose (eAG) 111 70-126 mg/dL Phosphorus Level 3.6 2.5-4.9 mg/dL Thyroid Stimulating Hormone (TSH) 1.77 0.36-3.74 uIU/mL Lactic Acid Level 2.5 0.8-2.5 mmol/L Coagulation Labs: Test 01/29/24 16:55 Range/Units Prothrombin Time 12.6 H 9.6-11.6 SEC Prothromb Time International Ratio 1.18 H 0.85-1.15 Activated Partial Thromboplast Time 24.2 L 26.3-35.5 SEC DIAGNOSTICS / RADIOLOGY RESULTS: CT CHEST W/O CONTRAST HISTORY: Possible TB COMPARISON: None TECHNIQUE: Multiple sequential axial images of the chest were obtained from the thoracic inlet through upper abdomen. Patient was not given contrast through intravenous route. FINDINGS: There are bilateral reticular nodular pulmonary infiltrates. Respiratory tuberculosis cannot be excluded and clinical correlation is recommended. Fatty changes of the liver are noted. Tiny right pleural effusion is seen. There is no evidence of pneumothorax. There are normal size mediastinal and hilar lymph nodes. The heart is not enlarged. Degenerative changes of the thoracolumbar spine are present. There is no evidence of adrenal nodule. Tubular shaped radiopaque density is seen in the stomach may be related to postop changes versus foreign body. IMPRESSION: 1. There are bilateral reticular nodular pulmonary infiltrates. Respiratory tuberculosis cannot be excluded and clinical correlation is recommended. Fatty changes of the liver are noted. Tiny right pleural effusion is seen. PLAN NEURO: Minimize central acting medications as possible. Maintain fall precautions, adequate lighting during the day PULMONARY: Supplemental 02 as needed. Maintain aspiration precautions at all times CARDIOVASCULAR: Follow hemodynamics. Vital signs per facility protocol GI & NUTRITION: Continue with nutritional support. Continue stool softeners and laxatives as needed. KIDNEYS & ELECTROLYTES: Strict monitoring of intake, output and overall fluid balance. Avoid nephrotoxic medications to the extent possible. Medications to be dosed according to renal function. Monitor electrolytes and replace as needed ENDOCRINE: Maintain blood glucose between 100-180 at all times. Hypoglycemia protocol in place INFECTIOUS DISEASE: Trend temperature, WBC and procalcitonin level Follow cultures, deescalate antibiotics as soon as possible. Panculture if new onset fever ONCOLOGY/HEMATOLOGY/COAGULATION: Monitor for s/s of bleeding Monitor hemoglobin, coagulation studies as needed SKIN: Pressure ulcer prevention per facility protocol Specialty mattress ORTHO/REHAB: Continue PT/OT Prophylaxis: Continue GI and DVT prophylaxis Code Status: Full Resuscitation Disposition: TBD Other: Total patient care time exceeds 35 minutes excluding all procedures. STEPHEN BEASLEY Jan 31, 2024 09:42
[2024-01-31 11:28] LABS: HIV 1&2 ANTIBODY Non-Reactive (Negative); HIV-1 p24 Antigen Non-Reactive (Negative)
--- NOTE | 2024-01-31 14:39 | PN ---
[facility] PROGRESS NOTE Date of Service: Jan 31, 2024 Time of Service: 14:[address] Jorgensen SUBJECTIVE: [ 01/28 Mr. Eldridge is a 48-year-old male with history of CHF, heart disease, hypertension, Lyme disease who presented to [facility] ED for evaluation of worsening shortness of breath. Patient patient reported that he presented to [facility] ED on 01/11/2024 evening was admitted diagnosed with pneumonia and was placed on isolation for evaluated for possible tuberculosis. IP [facility] patient was receiving Zithromax IV, Rocephin IV, and Solu- Medrol. The patient reports that he did not like the care of a [facility] and left AMA on 01/13/2024. at bedside reports that the sputum results for TB were never done and they were never updated on the patient's status therefore the patient left AMA. EKG: Sinus tachycardia, heart rate 116 beats per minute. Chest x-ray: 1. Right upper lobe infiltrate which could be early or mild pneumonia. 2. Mild cardiomegaly accentuated by a lordotic projection. Remarkable lab results: Hemoglobin 11.1, hematocrit 35.0, RBC 4.29. Lactic acid 2.3, GFR 75, total calcium 8.1, magnesium 1.9, CK 451, BNP 773. 01/29 patient was seen by nurse practitioner and physician during rounding in room 417 comfortably lying in the bed. Patient was evaluated by medical radiation tech and at this moment they will recommend furosemide 40 mg b.i.d. and 2D echo. BNP 773. We are still pending further recommendations/evaluation by timber girdler. Per case management patient to be discharged home once medically stable. Blood culture urine culture still pending. Patient continues to be on doxycycline and Rocephin. We will continue to monitor the patient a.m. labs 01/30 patient was seen by nurse practitioner and physician during rounding in 03/09/2016. Family member at the bedside and patient was sitting comfortably in the bed. 2D echo showed 25 to 30% stage I diastolic dysfunction. One AFB was ready obtain yesterday 01/29 another AFB was just obtain right now today 01/30. The 3rd AFB to be obtained tomorrow 01/31. QuantiFERON gold was also ordered. We are pending further evaluation/recommendations of timber girdler and ID. We will continue to monitor patient in the meantime. A.m. labs.] REVIEW OF SYSTEMS 12-point ROS reviewed with patient. All pertinent positives mentioned above. Otherwise negative, nonpertinent, or noncontributory. PHYSICAL EXAM GENERAL APPEARANCE: The patient is awake, alert, and oriented, in no acute cardiopulmonary distress. NEUROLOGICAL: Cranial nerves II-XII grossly intact. Motor is 5/5 in bilateral upper and lower extremities proximal to distal. No sensory deficits. HEENT: Face is symmetric. Pupils are equal and reactive. Extraocular movements are intact. NECK: Supple. No JVD. No thyromegaly. No submental, submandibular, pre- /postauricular, occipital or supraclavicular lymphadenopathy. CHEST: Normal chest expansion. No Telemetry. LUNGS: Diminished. Breathing is even and unlabored at rest. Absence of any rales, rhonchi or any wheezing. CARDIOVASCULAR: Regular. S1 and S2 normal. No appreciable rubs, murmurs or gallops. ABDOMEN: Soft, nontender, and nondistended. There is no rebound, voluntary guarding, or rigidity. : Deferred. No Jesus. EXTREMITIES: Non-edematous and not cyanotic. No clubbing. Good capillary refill. SKIN: No skin breakdown. Vital Signs (last 8hr) Date Time Temp Pulse Resp B/P (MAP) Pulse Ox O2 Delivery O2 Flow Rate FiO2 01/31/24 11:40 97.2 77 20 118/77 98 Room Air 21 01/31/24 10:29 84 20 N/Cannula Low lpm 2.0 28 01/31/24 08:00 98 Nasal Cannula* 2 28 01/31/24 07:30 98.2 81 20 107/80 100 Room Air 21 LABS: Laboratory: Test 01/31/24 11:05 01/31/24 10:09 01/31/24 05:12 01/31/24 04:34 Range/Units Whole Blood Glucose 144 H 70-110 MG/DL HIV (1&2) Antibody Non-Reactive Negative HIV P24 Antigen, Qualitative Non-Reactive Negative Bedside Glucose Comment Notified Nurse White Blood Count 8.4 # 4.8-10.8 K/uL Red Blood Count 4.20 L 4.50-6.20 MIL/uL Hemoglobin 11.0 L 14.0-18.0 g/dL Hematocrit 34.7 L 42-54 % Mean Corpuscular Volume 82.6 79-99 fL Mean Corpuscular Hemoglobin 26.2 L 27.0-33.0 pg Mean Corpuscular Hemoglobin Concent 31.7 L 32.0-36.0 g/dL Red Cell Distribution Width 15.8 H 11.0-15.5 % Platelet Count 232 130-400 K/uL Mean Platelet Volume 10.9 H 7.5-10.5 fL Immature Granulocyte % (Auto) 0.6 0-1 % Neutrophils (%) (Auto) 78.1 H 40.0-77.0 % Lymphocytes (%) (Auto) 9.3 L 21.0-51.0 % Monocytes (%) (Auto) 11.0 3.0-13.0 % Eosinophils (%) (Auto) 0.8 0.0-8.0 % Basophils (%) (Auto) 0.2 0.0-5.0 % Neutrophils # (Auto) 6.5 1.8-7.7 K/uL Lymphocytes # (Auto) 0.8 L 1.0-4.8 K/uL Monocytes # (Auto) 0.9 0.1-1.0 K/uL Eosinophils # (Auto) 0.07 0.00-0.70 K/uL Basophils # (Auto) 0.02 0.00-0.20 K/uL Absolute Immature Granulocyte (auto 0.05 0-1 K/uL Nucleated Red Blood Cells 0.0 0.0-0.19 % Sodium Level 131 L 136-145 mmol/L Potassium Level 4.5 3.5-5.1 mmol/L Chloride Level 97 L 101-111 mmol/L Carbon Dioxide Level 30 21-32 mmol/L Blood Urea Nitrogen 14 7-18 mg/dL Creatinine 1.5 H 0.5-1.3 mg/dL Glomerular Filtration Rate Calc 57 >90 mL/min Random Glucose 100 70-105 mg/dL Total Calcium 7.9 L 8.5-10.1 mg/dL Magnesium Level 1.80 1.80-2.40 mg/dL Total Bilirubin 1.0 0.2-1.0 mg/dL Aspartate Amino Transf (AST/SGOT) 96 H 10-37 U/L Alanine Aminotransferase (ALT/SGPT) 96 H 12-78 U/L Alkaline Phosphatase 65 50-136 U/L Total Creatine Kinase 703 *H 21-232 U/L Troponin I High Sensitivity 43.9 4-75 ng/L B-Type Natriuretic Peptide 776 H 0-100 pg/mL Total Protein 5.7 L 6.0-8.3 g/dL Albumin 2.6 L 3.5-5.0 g/dL Test 01/30/24 04:55 01/29/24 22:37 01/29/24 19:49 01/29/24 19:00 Range/Units Red Blood Cell Morphology See comments Hemoglobin A1c 5.5 4.0-6.0 % Estimated Average Glucose (eAG) 111 70-126 mg/dL Phosphorus Level 3.6 2.5-4.9 mg/dL Thyroid Stimulating Hormone (TSH) 1.77 0.36-3.74 uIU/mL Lactic Acid Level 2.5 0.8-2.5 mmol/L Blood Gas Specimen Type Arterial Arterial Blood pH 7.466 H 7.350-7.450 Arterial Blood Partial Pressure CO2 31 L 35-48 mmHg Arterial Blood Partial Pressure O2 105.1 83.0-108.0 mmHg Arterial Blood HCO3 21.9 21.0-28.0 mmol/L Arterial Blood Oxygen Saturation 98.1 H 94.0-98.0 % Arterial Blood Base Excess -0.8 -2.0-3.0 mmol/L Blood Gas Temperature 37.0 35.5-37.0 CELSIUS Blood Gas Flow-by 5.00 0.00-15.00 L/min Blood Gas Vent Mode 5LNC ROOM AIR FiO2 40.0 % Blood Gas Specimen Comment RR RN Urine Color YELLOW YELLOW Urine Appearance CLEAR CLEAR Urine pH 5.5 5.0-8.0 Urine Specific Ingalls 1.020 1.001-1.031 Urine Protein 100 H NEGATIVE mg/dL Urine Glucose (UA) NEGATIVE NEGATIVE mg/dL Urine Ketones NEGATIVE NEGATIVE mg/dL Urine Occult Blood NEGATIVE NEGATIVE Urine Nitrate NEGATIVE NEGATIVE Urine Bilirubin NEGATIVE NEGATIVE mg/dL Urine Urobilinogen 0.2 0.2-1.0 mg/dL Urine Leukocyte Esterase NEGATIVE NEGATIVE Eliezer/uL Urine RBC 0-1 0-1 /HPF Urine WBC 2-5 H 0-1 /HPF Urine Bacteria RARE None Seen /HPF Urine Opiates Screen NEGATIVE NEGATIVE Urine Barbiturates Screen NEGATIVE NEGATIVE Urine Phencyclidine Screen NEGATIVE NEGATIVE Urine Amphetamines Screen NEGATIVE NEGATIVE Urine Benzodiazepines Screen NEGATIVE NEGATIVE Urine Cocaine Screen POSITIVE H NEGATIVE Urine Marijuana (THC) Screen NEGATIVE NEGATIVE Test 01/29/24 17:00 01/29/24 16:55 Range/Units Influenza Type A Antigen Negative For Type A NEGATIVE Influenza Type B Antigen Negative For Type B NEGATIVE SARS-CoV-2, RNA, NAAT NEGATIVE SARS CoV-2 NEGATIVE White Cell Morphology Comment See comments Prothrombin Time 12.6 H 9.6-11.6 SEC Prothromb Time International Ratio 1.18 H 0.85-1.15 Activated Partial Thromboplast Time 24.2 L 26.3-35.5 SEC Current Medications Medications (Trade) Dose Ordered Sig/Ramon Route PRN Reason Start Time Stop Time Status Last Admin Dose Admin Acetaminophen (TYLenol 325MG TAB) 650 mg Q6H PRN PO FEVER/MILD PAIN LEVEL 1-3 01/29/24 19:00 02/28/24 18:59 01/30/24 17:01 650 MG Acetaminophen (TYLenol 650MG SUPPOSITORY) 650 mg Q6H PRN RC FEVER / MILD PAIN 1-3 IF NPO 01/29/24 19:00 02/28/24 18:59 Acetylcysteine (MUComyst 20% 4ML) 400 mg Q6H IH 01/30/24 14:30 01/30/24 22:57 DC Acetylcysteine (MUComyst 20% 4ML) 400 mg Q6H PO 01/30/24 01:00 01/30/24 14:05 DC Albuterol Sulfate (Ventolin Hfa) 2 PUFFS Q6H IH 01/30/24 02:00 02/29/24 01:59 01/31/24 02:35 2 INH Aspirin (Aspirin 81mg Chew Tab) 81 mg DAILY PO 01/30/24 09:00 02/29/24 08:59 01/31/24 10:07 81 MG Atorvastatin Calcium (LIPItor 40MG) 40 mg HS PO 01/30/24 21:00 02/29/24 20:59 01/30/24 21:37 40 MG Azithromycin 250 ml @ 250 mls/hr Q24H STAT IVPB 01/29/24 17:49 01/29/24 18:48 DC 01/29/24 18:05 250 MLS/HR Budesonide (Pulmicort 0.5 Mg/2ml) 0.5 mg BIDRESP IH 01/31/24 18:00 03/01/24 17:59 Ceftriaxone Sodium (ROCEphine 1G INJ) 1 gm DAILY15 IVP 01/30/24 15:00 02/09/24 14:59 01/30/24 17:01 1 GM Cetirizine HCl (ZYRtec 5 MG TABLET) 10 mg DAILY20 PO 01/30/24 01:10 02/29/24 01:09 01/31/24 01:29 10 MG Docusate Sodium (COLace 100MG CAP) 100 mg BID PRN PO c 01/29/24 19:00 02/28/24 18:59 Doxycycline Hyclate (Doxycycline 100mg+NS 250ml) 100 mg BID IV 01/29/24 23:00 02/08/24 22:59 01/31/24 10:05 100 MG Enoxaparin Sodium (Lovenox) 40 mg DAILY SQ 01/30/24 09:00 02/29/24 08:59 01/31/24 10:08 40 MG Famotidine (Pepcid 20mg Tab) 20 mg BID PO 01/29/24 21:00 02/28/24 20:59 01/31/24 10:06 20 MG Furosemide (LASix 20MG VIAL) 20 mg Q12H IV 01/30/24 09:00 01/30/24 11:01 DC 01/30/24 08:43 20 MG Furosemide (LASix 20MG VIAL) 40 mg Q12H IV 01/30/24 21:00 01/30/24 16:44 DC Guaifenesin/ Codeine Phosphate (RobiTUSSin AC 5 ML SYRUP) 20 ml DAILY20 PO 01/30/24 00:01 02/29/24 00:00 01/30/24 21:37 20 ML Guaifenesin/ Dextromethorphan (RobiTUSSin DM 200/20MG 10ML) 15 ml Q4H PRN PO COUGH 01/29/24 23:00 02/28/24 22:59 01/31/24 02:39 15 ML Hydralazine HCl (APRESOLine 20MG INJ) 10 mg Q6H PRN IV SBP GREATER THAN 180 01/29/24 19:00 02/28/24 18:59 Insulin Human Regular (humuLIN R 100 UNIT/ML 3ML) INSULIN SLIDING SCAL... ACHS SQ 01/29/24 21:00 02/28/24 20:59 Labetalol HCl (TRANdate 20MG SYG) 10 mg Q2H PRN IV SBP GREATER THAN 160 01/29/24 19:00 02/28/24 18:59 Lactulose (Constulose 20gm/ 30ml Udcup) 20 gm Q6H PRN PO CONSTIPATION 01/29/24 19:00 02/28/24 18:59 01/29/24 23:20 20 GM Lisinopril (Prinivil 2.5mg) 2.5 mg DAILY PO 01/31/24 09:00 01/31/24 05:48 DC Magnesium Sulfate 50 ml @ 0 mls/hr PROTOCOL PRN IV MAGNESIUM PROTOCOL 01/31/24 06:30 03/01/24 06:29 01/31/24 07:34 25 MLS/HR Ondansetron HCl (zoFRAN 4MG INJ) 4 mg Q6H PRN IVP NAUSEA/VOMITING 01/29/24 19:00 02/28/24 18:59 01/31/24 05:11 4 MG Pharmacy Profile Note (Pharmacy Communication) 1 each ONCE MISC 01/30/24 01:00 01/30/24 01:26 DC Sodium Chloride 1,000 ml @ 100 mls/hr Q10H IV 01/30/24 01:00 01/30/24 01:42 DC Temazepam (restORIL 15 MG CAP) 15 mg HS PRN PO INSOMNIA/SLEEP 01/29/24 19:00 02/28/24 18:59 DIAGNOSTICS / RADIOLOGY: [ ] ASSESSMENT: CHF exacerbation LVEF 20-25%, per [facility] echo on 01/13/2024 Grade 3 diastolic dysfunction, per [facility] echo on 01/13/2024 Multifocal pneumonia possible secondary to crack lung secondary to cocaine use Lung Infiltrates, rule out TB Negative for PE, per CTA on 01/11/2024 at [facility] Respiratory alkalosis Rhabdomyolysis, CK 451 Acute on chronic kidney disease, GFR 75 Anemia chronic disease Polysubstance abuse, + cocaine on 01/29/24 Hypertension Coronary artery disease Obese, BMI 37.4 History of lyme disease History of a polysubstance abuse positive cocaine and THC PLAN: -Admit to Medical floor with continuous telemetry monitoring -Monitor respiratory status closely. -Continue oxygen therapy as needed. Titrate oxygen prn to keep Spo2>/+=92%. - Start Zyrtec 10 mg p.o. q.h.s.. - Start Mucomyst 400 mg p.o. q.6 hours. - Start albuterol inhaler q.6 hours scheduled. -RT to provide IS and education on use. -Robitussin DM as needed cough. -Lasix 20 mg IV. b.i.d. in a.m. (we will start with light diuresis in am due to rhabdo, sepsis, and deferred to Cardiology.) -pending pulmonology consultation/evaluation Pending ID consultation/evaluation -total NS1 L bolus administered for sepsis alert, elevated lactic acid, rhabdo -Precaution and monitor for fluid overload due to CHF/elevated BNP, low LVEF. -Continue antibiotic therapy: Doxycycline IV and Rocephin IV -p.r.n. medications for: Fever, pain management, nausea, vomiting, constipation, hypertension -Glucometer checks AC & HS needed with insulin regular sliding scale coverage as needed. -Acid-fast bacilli (AFB) -AM labs. - Monitor renal and liver function - Monitor electrolytes and treat accordingly. -GI and DVT prophylaxis ATTESTATION BY PHYSICIAN I have seen and examined the patient. I reviewed the documentation, medical decision making, and treatment plan as noted by the mid-level provider above. I agree with the findings and plan of care. Alphonse Jorgensen IV, MD, [facility] [employer] Jan 31, 2024 14:39
[2024-01-31] MEDS: BUDESONIDE 0.5 MG/2 ML INH IH SCH (19:59)
--- NOTE | 2024-01-31 20:21 | CONS ---
DATE OF SERVICE: 01/31/2024. INFECTIOUS DISEASE CONSULTATION NOTE REQUESTING PHYSICIAN: Lucila Roach NP REASON FOR CONSULTATION: Possible tuberculosis. HISTORY OF PRESENT ILLNESS: A 48-year-old male with history of morbid obesity, coronary artery disease, hypertension, and CHF, presented to the hospital with increasing cough and shortness of breath. The patient's symptoms are going on for some weeks. The patient is complaining of increasing leg swelling and weight gain. The patient's CT chest done, showed bilateral infiltrate and possible tuberculosis found. The patient has no pain. No fever. No history of sick contact or tuberculosis. Sputum AFB has been sent and came back negative x1. The patient has cough with blood sputum. The patient also found with elevated CPK. No fall or trauma. PAST MEDICAL HISTORY: * CHF. * Coronary artery disease. * Hypertension. * Morbid obesity. PAST SURGICAL HISTORY: * Appendectomy. * Shoulder surgery. ALLERGIES: No known drug allergy. CURRENT MEDICATIONS: Reviewed. SOCIAL HISTORY: . No alcohol, tobacco or illicit drug use. FAMILY HISTORY: Noncontributory. REVIEW OF SYSTEMS: Greater than 10 systems were reviewed, negative except as documented above. PHYSICAL EXAMINATION: GENERAL: Young male, awake, not in distress. VITAL SIGNS: Temperature 97.2, pulse 77, respiratory rate 20, and BP 118/77. EYES: No icterus. Pupils equal and reactive. HENT: No oral thrush seen. Moist oral mucosa. NECK: Supple, no JVD or thyromegaly. LUNGS: Good air entry. Crackles bilaterally. CARDIOVASCULAR: S1, S2 regular. No murmur heard. ABDOMEN: Morbidly obese and soft. Bowel sounds present. CENTRAL NERVOUS SYSTEM: Awake, alert, and oriented x 3. No focal deficits. SKIN: No rashes, no itchiness. LYMPHATIC: No peripheral lymphadenopathy. BACK: No deformity, no pressure ulcer. EXTREMITIES: Pitting edema of lower extremities, no cellulitis. LABORATORY DATA: CPK 703. Sodium 131, potassium 4.5, BUN 14, and creatinine 1.5. WBC 8.4, hemoglobin 11.0, and platelet 232. Urine toxicology positive for cocaine. Blood culture, no growth for one day. Sputum ____ negative x1. RADIOLOGY: CT chest result reviewed. ASSESSMENT: A 48-year-old male presenting with cough and shortness of breath. CURRENT PROBLEMS: Include: * Pneumonia. * Possible tuberculosis. * Morbid obesity. * Izspx-[id number] heart failure. * Debility. PLAN: * Continue airborne isolation. * Send sputum for TB/PCR. * Follow up sputum ABF. * Continue Lasix. * Continue ceftriaxone. * Continue doxycycline. * Monitor electrolytes. * The patient will follow up closely. TID: [id number] RECEIPT: [id number] [facility]
[2024-01-31] MEDS: TEMAZepam 15 MG CAPSULE PO PRN (20:25)
[2024-02-01] VITALS (11 sets, daily range): BP systolic 88–110; BP diastolic 50–75; PULSE 58–111; RESP 17–24; TEMP 97.7–98.4; O2SAT 93–97
[2024-02-01 00:47] LABS: HEPATITIS A IGM ANTIBODY Non-Reactive (Nonreactive); HEPATITIS B CORE IGM ANTIBODY Non-Reactive (Negative); HEPATITIS B SURFACE ANTIGEN Non-Reactive (Nonreactive); HEPATITIS C ANTIBODY Non-Reactive (Nonreactive)
--- NOTE | 2024-02-01 01:05 | NUR ---
SECURITY CAME TO SEE IF PATIENT WANTED TO PUT AWAY BRYANT MONEY WE (ME AND NURSE HOG ROOM SUPERVISOR) SAW PATIENT HAD ALL OVER THE BED AND ON THE FLOOR WHILE HE SLEPT. HE AWAKE AND I ASKED HIM AND HE AGREED. OFFICER AND ME COUNTED BILLS IN FRONT OF HIM. HE AGREED WITH THE TOTAL AMOUNT. COUNTED 51 $50's AND 7 $100s BILLS. DIALYSIS CLINICAL MANAGER JOCELINE TOOK WITH HIM. Addendum: 02/01/24 at 0119 by YU SAGE RN RN CHARGE NURSE IFRAH CRANE AWAKE.
[2024-02-01 03:42] LABS: BASOPHILS # (AUTO) 0.01 K/uL (0.00-0.20); BASOPHILS % (AUTO) 0.2 % (0.0-5.0); EOSINOPHILS # (AUTO) 0.06 K/uL (0.00-0.70); HEMATOCRIT 34.7 % (42-54); IMMATURE GRANULOCYTE ABSOLUTE 0.05 K/uL (0-1); LYMPHOCYTES % (AUTO) 16.1 % (21.0-51.0); MEAN CORPUSCULAR HEMOGLOBIN 25.4 pg (27.0-33.0); MEAN CORPUSCULAR HGB CONC 31.1 g/dL (32.0-36.0); MEAN CORPUSCULAR VOLUME 81.5 fL (79-99); MONOCYTES # (AUTO) 0.9 K/uL (0.1-1.0); MONOCYTES % (AUTO) 14.8 % (3.0-13.0); NEUTROPHILS # (AUTO) 4.1 K/uL (1.8-7.7); NEUTROPHILS % (AUTO) 67.1 % (40.0-77.0); PLATELET COUNT (AUTO) 237 K/uL (130-400); RED BLOOD CELL COUNT(AUTO) 4.26 MIL/uL (4.50-6.20); WHITE BLOOD COUNT (AUTO) 6.2 K/uL (4.8-10.8)
[2024-02-01 04:14] LABS: ALBUMIN 2.7 g/dL (3.5-5.0); BILIRUBIN,TOTAL 2.6 mg/dL (0.2-1.0); CREATININE 1.6 mg/dL (0.5-1.3); MAGNESIUM 2.3 mg/dL (1.80-2.40); POTASSIUM 4.5 mmol/L (3.5-5.1); TOTAL PROTEIN, SERUM 5.9 g/dL (6.0-8.3)
--- NOTE | 2024-02-01 08:57 | PN ---
[facility] Cardiology Progress Note PROBLEM LIST: 1. Acute on chronic combined systolic and diastolic heart failure with a BNP level of 773 2. Dilated cardiomyopathy with ejection fraction of 25-30% and moderate aortic regurgitation, moderate mitral valve regurgitation 3. Bilateral reticulonodular pulmonary infiltrates of concern for possible TB versus pneumonia 4. Polysubstance abuse including cocaine 5. Hypertension 6. Remote history of Lyme disease 7. NATAN, creatinine rising to 1.6 8. Transaminitis, possibly secondary to hypotension or hepatic congestion 9. Community-acquired pneumonia INTERVAL HISTORY: [This is a remote visit due to infectious precautions. Patient is being worked up by ID for TB. He did not tolerate 2.5 mg dose of lisinopril. He did receive a course of IV Lasix, but is no longer on it. He does have some shortness of breath but no chest discomfort. He was positive for cocaine. Patient had over $3200 dollars scattered on the bed last night, now in safe keeping with security. LFTs minimally elevated on admission, but evaristo rely so this morning; renal function has deteriorated also with a creatinine rising to 1.6. Patient continues with a positive fluid balance, 0.5 kg weight loss. No reports of fever or bleeding.] PHYSICAL EXAMINATION: Vital Signs (Last 48hrs) Date Time Temp Pulse Resp B/P (MAP) Pulse Ox O2 Delivery O2 Flow Rate FiO2 02/01/24 07:45 97.7 82 20 110/68 97 Room Air 02/01/24 03:24 98.1 102 24 95/66 98 Nasal Cannula 2.0 02/01/24 00:08 94 99/50 01/31/24 23:10 100 22 100 Nasal Cannula 3.0 01/31/24 20:13 110 20 N/Cannula Low lpm 2.0 01/31/24 20:00 110 22 01/31/24 19:10 96.6 111 20 103/73 100 Nasal Cannula 3.0 01/31/24 19:05 100 Nasal Cannula* 3 32 01/31/24 16:00 97.3 104 18 132/68 100 Nasal Cannula 2.0 01/31/24 11:40 97.2 77 20 118/77 98 Room Air 01/31/24 10:29 84 20 N/Cannula Low lpm 2.0 01/31/24 08:00 98 Nasal Cannula* 2 28 01/31/24 07:30 98.2 81 20 107/80 100 Room Air 21 01/31/24 06:23 85 20 N/Cannula Low lpm 3.0 32 01/31/24 05:20 90/72 01/31/24 04:35 98.6 104 28 82/56 98 Nasal Cannula 2.0 01/30/24 23:37 98.4 101 28 116/71 97 Room Air 01/30/24 22:42 78 19 N/Cannula Low lpm 2.0 28 01/30/24 21:44 97 Nasal Cannula* 2 28 01/30/24 19:56 99.0 98 26 127/68 98 Nasal Cannula 2.0 01/30/24 16:00 98.4 114 19 107/63 96 Nasal Cannula 2.0 01/30/24 12:40 102 97/69 01/30/24 12:23 80 20 N/Cannula Low lpm 2.0 28 01/30/24 12:00 98.2 85 20 87/54 96 Room Air 0.0 Deferred due to infectious precautions LABORATORY DATA: [ Laboratory Tests Test 01/31/24 10:09 01/31/24 11:05 01/31/24 16:51 01/31/24 19:13 Hepatitis A IgM Antibody Non-Reactive (Nonreactive) Hepatitis B Surface Antigen. Non-Reactive (Nonreactive) Hepatitis B Core IgM Antibody Non-Reactive (Negative) Hepatitis C Antibody Non-Reactive (Nonreactive) HIV (1&2) Antibody Non-Reactive (Negative) HIV P24 Antigen, Qualitative Non-Reactive (Negative) Whole Blood Glucose 144 MG/DL (70-110) H 92 MG/DL (70-110) 114 MG/DL (70-110) H Test 02/01/24 03:11 02/01/24 04:55 White Blood Count 6.2 K/uL (4.8-10.8) # Red Blood Count 4.26 MIL/uL (4.50-6.20) L Hemoglobin 10.8 g/dL (14.0-18.0) L Hematocrit 34.7 % (42-54) L Mean Corpuscular Volume 81.5 fL (79-99) Mean Corpuscular Hemoglobin 25.4 pg (27.0-33.0) L Mean Corpuscular Hemoglobin Concent 31.1 g/dL (32.0-36.0) L Red Cell Distribution Width 16.0 % (11.0-15.5) H Platelet Count 237 K/uL (130-400) Mean Platelet Volume 11.7 fL (7.5-10.5) H Immature Granulocyte % (Auto) 0.8 % (0-1) Neutrophils (%) (Auto) 67.1 % (40.0-77.0) Lymphocytes (%) (Auto) 16.1 % (21.0-51.0) L Monocytes (%) (Auto) 14.8 % (3.0-13.0) H Eosinophils (%) (Auto) 1.0 % (0.0-8.0) Basophils (%) (Auto) 0.2 % (0.0-5.0) Neutrophils # (Auto) 4.1 K/uL (1.8-7.7) Lymphocytes # (Auto) 1.0 K/uL (1.0-4.8) Monocytes # (Auto) 0.9 K/uL (0.1-1.0) Eosinophils # (Auto) 0.06 K/uL (0.00-0.70) Basophils # (Auto) 0.01 K/uL (0.00-0.20) Absolute Immature Granulocyte (auto 0.05 K/uL (0-1) Nucleated Red Blood Cells 0.0 % (0.0-0.19) Sodium Level 129 mmol/L (136-145) L Potassium Level 4.5 mmol/L (3.5-5.1) Chloride Level 97 mmol/L (101-111) L Carbon Dioxide Level 31 mmol/L (21-32) Blood Urea Nitrogen 16 mg/dL (7-18) Creatinine 1.6 mg/dL (0.5-1.3) H Glomerular Filtration Rate Calc 53 mL/min (>90) Random Glucose 89 mg/dL (70-105) Total Calcium 8.0 mg/dL (8.5-10.1) L Magnesium Level 2.30 mg/dL (1.80-2.40) Total Bilirubin 2.6 mg/dL (0.2-1.0) #H Aspartate Amino Transf (AST/SGOT) 947 U/L (10-37) *H Alanine Aminotransferase (ALT/SGPT) 973 U/L (12-78) #*H Alkaline Phosphatase 202 U/L (50-136) #H Total Creatine Kinase 506 U/L (21-232) #*H B-Type Natriuretic Peptide 767 pg/mL (0-100) H Total Protein 5.9 g/dL (6.0-8.3) L Albumin 2.7 g/dL (3.5-5.0) L Whole Blood Glucose 108 MG/DL (70-110) ] RADIOLOGY: [None new] PLAN: [Patient did not tolerate even even a miniscule dose of lisinopril due to hypotension. Not a candidate for GDMT. Start oral Lasix 20 mg, hold systolics less than 90. Renal function has deteriorated and and his transaminases are in the 900 range; not yet clear if this is incipient multi organ failure. If his renal, hepatic, and pulmonary indices improve, he would benefit from some type of ischemic evaluation.] NEERU GARCIA Feb 01, 2024 08:57
[2024-02-01 09:04] LABS: ALBUMIN 2.6 g/dL (3.5-5.0); BILIRUBIN,TOTAL 2.9 mg/dL (0.2-1.0); CREATININE 1.7 mg/dL (0.5-1.3); PHOSPHORUS 3.6 mg/dL (2.5-4.9); POTASSIUM 4.6 mmol/L (3.5-5.1); TOTAL PROTEIN, SERUM 5.8 g/dL (6.0-8.3); URIC ACID 6.4 mg/dL (2.6-7.2)
[2024-02-01] MEDS: furoSEMIDE 20 MG TABLET PO SCH (09:14)
--- NOTE | 2024-02-01 09:47 | PN ---
[facility] PROGRESS NOTE Date of Service: Feb 01, 2024 Time of Service: 09:[address] Fitzpatrick SUBJECTIVE: [ 01/28 Mr. Eldridge is a 48-year-old male with history of CHF, heart disease, hypertension, Lyme disease who presented to [facility] ED for evaluation of worsening shortness of breath. Patient patient reported that he presented to [facility] ED on 01/11/2024 evening was admitted diagnosed with pneumonia and was placed on isolation for evaluated for possible tuberculosis. IP [facility] patient was receiving Zithromax IV, Rocephin IV, and Solu- Medrol. The patient reports that he did not like the care of a [facility] and left AMA on 01/13/2024. at bedside reports that the sputum results for TB were never done and they were never updated on the patient's status therefore the patient left AMA. EKG: Sinus tachycardia, heart rate 116 beats per minute. Chest x-ray: 1. Right upper lobe infiltrate which could be early or mild pneumonia. 2. Mild cardiomegaly accentuated by a lordotic projection. Remarkable lab results: Hemoglobin 11.1, hematocrit 35.0, RBC 4.29. Lactic acid 2.3, GFR 75, total calcium 8.1, magnesium 1.9, CK 451, BNP 773. 01/29 patient was seen by nurse practitioner and physician during rounding in room 417 comfortably lying in the bed. Patient was evaluated by research professional and at this moment they will recommend furosemide 40 mg b.i.d. and 2D echo. BNP 773. We are still pending further recommendations/evaluation by bolting machine operator. Per case management patient to be discharged home once medically stable. Blood culture urine culture still pending. Patient continues to be on doxycycline and Rocephin. We will continue to monitor the patient a.m. labs 01/30 patient was seen by nurse practitioner and physician during rounding in room 417. Family member at the bedside and patient was sitting comfortably in the bed. 2D echo showed 25 to 30% stage I diastolic dysfunction. One AFB was ready obtain yesterday 01/29 another AFB was just obtain right now today 01/30. The 3rd AFB to be obtained tomorrow 01/31. QuantiFERON gold was also ordered. We are pending further evaluation/recommendations of bolting machine operator and ID. We will continue to monitor patient in the meantime. A.m. labs. 01/31 patient was seen by CONSERVATION PLANNER and physician. Patient was evaluated by the research professional and was not able to tolerate lisinopril. Patient will continue on furosemide 40 mg b.i.d. hold it if systolic less than 90. 2D echo 25 to 30% stage I diastolic dysfunction. Three AFBs were already obtained and sent to the lab. Blood culture still pending results and sputum culture pending results. Urine final culture is negative. Patient continues to be on doxycycline and Rocephin per ID. We will continue to monitor patient in the meantime. A.m. labs.] REVIEW OF SYSTEMS 12-point ROS reviewed with patient. All pertinent positives mentioned above. Otherwise negative, nonpertinent, or noncontributory. PHYSICAL EXAM GENERAL APPEARANCE: The patient is awake, alert, and oriented, in no acute cardiopulmonary distress. NEUROLOGICAL: Cranial nerves II-XII grossly intact. Motor is 5/5 in bilateral upper and lower extremities proximal to distal. No sensory deficits. HEENT: Face is symmetric. Pupils are equal and reactive. Extraocular movements are intact. NECK: Supple. No JVD. No thyromegaly. No submental, submandibular, pre- /postauricular, occipital or supraclavicular lymphadenopathy. CHEST: Normal chest expansion. No Telemetry. LUNGS: Diminished. Breathing is even and unlabored at rest. Absence of any rales, rhonchi or any wheezing. CARDIOVASCULAR: Regular. S1 and S2 normal. No appreciable rubs, murmurs or gallops. ABDOMEN: Soft, nontender, and nondistended. There is no rebound, voluntary gu arding, or rigidity. : Deferred. No Jesus. EXTREMITIES: Non-edematous and not cyanotic. No clubbing. Good capillary refill. SKIN: No skin breakdown. Vital Signs (last 8hr) Date Time Temp Pulse Resp B/P (MAP) Pulse Ox O2 Delivery O2 Flow Rate FiO2 02/01/24 07:45 97.7 82 20 110/68 97 Room Air 21 02/01/24 03:24 98.1 102 24 95/66 98 Nasal Cannula 2.0 LABS: Laboratory: Test 02/01/24 08:40 02/01/24 04:55 02/01/24 03:11 01/31/24 10:09 Range/Units Sodium Level 132 L 136-145 mmol/L Potassium Level 4.6 3.5-5.1 mmol/L Chloride Level 96 L 101-111 mmol/L Carbon Dioxide Level 32 21-32 mmol/L Blood Urea Nitrogen 18 7-18 mg/dL Creatinine 1.7 H 0.5-1.3 mg/dL Glomerular Filtration Rate Calc 49 >90 mL/min Random Glucose 90 70-105 mg/dL Uric Acid 6.4 2.6-7.2 mg/dL Total Calcium 8.1 L 8.5-10.1 mg/dL Phosphorus Level 3.6 2.5-4.9 mg/dL Total Bilirubin 2.9 H 0.2-1.0 mg/dL Gamma Glutamyl Transpeptidase 413 H 5-85 U/L Aspartate Amino Transf (AST/SGOT) 888 *H 10-37 U/L Alanine Aminotransferase (ALT/SGPT) 988 *H 12-78 U/L Alkaline Phosphatase 190 H 50-136 U/L Lactate Dehydrogenase 428 H 81-234 U/L Total Protein 5.8 L 6.0-8.3 g/dL Albumin 2.6 L 3.5-5.0 g/dL Triglycerides Level 51 30-200 mg/dL Cholesterol Level 68 <200 mg/dL LDL Cholesterol 47 0-99 mg/dL HDL Cholesterol 17 L 29-71 mg/dL Whole Blood Glucose 108 70-110 MG/DL White Blood Count 6.2 # 4.8-10.8 K/uL Red Blood Count 4.26 L 4.50-6.20 MIL/uL Hemoglobin 10.8 L 14.0-18.0 g/dL Hematocrit 34.7 L 42-54 % Mean Corpuscular Volume 81.5 79-99 fL Mean Corpuscular Hemoglobin 25.4 L 27.0-33.0 pg Mean Corpuscular Hemoglobin Concent 31.1 L 32.0-36.0 g/dL Red Cell Distribution Width 16.0 H 11.0-15.5 % Platelet Count 237 130-400 K/uL Mean Platelet Volume 11.7 H 7.5-10.5 fL Immature Granulocyte % (Auto) 0.8 0-1 % Neutrophils (%) (Auto) 67.1 40.0-77.0 % Lymphocytes (%) (Auto) 16.1 L 21.0-51.0 % Monocytes (%) (Auto) 14.8 H 3.0-13.0 % Eosinophils (%) (Auto) 1.0 0.0-8.0 % Basophils (%) (Auto) 0.2 0.0-5.0 % Neutrophils # (Auto) 4.1 1.8-7.7 K/uL Lymphocytes # (Auto) 1.0 1.0-4.8 K/uL Monocytes # (Auto) 0.9 0.1-1.0 K/uL Eosinophils # (Auto) 0.06 0.00-0.70 K/uL Basophils # (Auto) 0.01 0.00-0.20 K/uL Absolute Immature Granulocyte (auto 0.05 0-1 K/uL Nucleated Red Blood Cells 0.0 0.0-0.19 % Magnesium Level 2.30 1.80-2.40 mg/dL Total Creatine Kinase 506 #*H 21-232 U/L B-Type Natriuretic Peptide 767 H 0-100 pg/mL Hepatitis A IgM Antibody Non-Reactive Nonreactive Hepatitis B Surface Antigen. Non-Reactive Nonreactive Hepatitis B Core IgM Antibody Non-Reactive Negative Hepatitis C Antibody Non-Reactive Nonreactive HIV (1&2) Antibody Non-Reactive Negative HIV P24 Antigen, Qualitative Non-Reactive Negative Test 01/31/24 05:12 01/31/24 04:34 Range/Units Bedside Glucose Comment Notified Nurse Troponin I High Sensitivity 43.9 4-75 ng/L Current Medications Medications (Trade) Dose Ordered Sig/Ramon Route PRN Reason Start Time Stop Time Status Last Admin Dose Admin Acetaminophen (TYLenol 325MG TAB) 650 mg Q6H PRN PO FEVER/MILD PAIN LEVEL 1-3 01/29/24 19:00 02/28/24 18:59 01/30/24 17:01 650 MG Acetaminophen (TYLenol 650MG SUPPOSITORY) 650 mg Q6H PRN RC FEVER / MILD PAIN 1-3 IF NPO 01/29/24 19:00 02/28/24 18:59 Acetylcysteine (MUComyst 20% 4ML) 400 mg Q6H IH 01/30/24 14:30 01/30/24 22:57 DC Acetylcysteine (MUComyst 20% 4ML) 400 mg Q6H PO 01/30/24 01:00 01/30/24 14:05 DC Albuterol Sulfate (Ventolin Hfa) 2 PUFFS Q6H IH 01/30/24 02:00 02/29/24 01:59 01/31/24 20:27 2 INH Aspirin (Aspirin 81mg Chew Tab) 81 mg DAILY PO 01/30/24 09:00 02/29/24 08:59 02/01/24 09:14 81 MG Atorvastatin Calcium (LIPItor 40MG) 40 mg HS PO 01/30/24 21:00 02/29/24 20:59 01/31/24 20:26 40 MG Azithromycin 250 ml @ 250 mls/hr Q24H STAT IVPB 01/29/24 17:49 01/29/24 18:48 DC 01/29/24 18:05 250 MLS/HR Budesonide (Pulmicort 0.5 Mg/2ml) 0.5 mg BIDRESP IH 01/31/24 18:00 03/01/24 17:59 02/01/24 07:57 0.5 MG Ceftriaxone Sodium (ROCEphine 1G INJ) 1 gm DAILY15 IVP 01/30/24 15:00 02/09/24 14:59 01/31/24 15:13 1 GM Cetirizine HCl (ZYRtec 5 MG TABLET) 10 mg DAILY20 PO 01/30/24 01:10 02/29/24 01:09 01/31/24 20:26 10 MG Docusate Sodium (COLace 100MG CAP) 100 mg BID PRN PO c 01/29/24 19:00 02/28/24 18:59 Doxycycline Hyclate (Doxycycline 100mg+NS 250ml) 100 mg BID IV 01/29/24 23:00 02/08/24 22:59 02/01/24 09:14 100 MG Enoxaparin Sodium (Lovenox) 40 mg DAILY SQ 01/30/24 09:00 02/29/24 08:59 02/01/24 09:14 40 MG Famotidine (Pepcid 20mg Tab) 20 mg BID PO 01/29/24 21:00 02/28/24 20:59 02/01/24 09:14 20 MG Furosemide (LASix 20MG TAB) 20 mg BID@09,17 PO 02/01/24 09:00 03/02/24 08:59 02/01/24 09:14 20 MG Furosemide (LASix 20MG VIAL) 20 mg Q12H IV 01/30/24 09:00 01/30/24 11:01 DC 01/30/24 08:43 20 MG Furosemide (LASix 20MG VIAL) 40 mg Q12H IV 01/30/24 21:00 01/30/24 16:44 DC Guaifenesin/ Codeine Phosphate (RobiTUSSin AC 5 ML SYRUP) 20 ml DAILY20 PO 01/30/24 00:01 02/29/24 00:00 01/31/24 20:22 20 ML Guaifenesin/ Dextromethorphan (RobiTUSSin DM 200/20MG 10ML) 15 ml Q4H PRN PO COUGH 01/29/24 23:00 02/28/24 22:59 01/31/24 02:39 15 ML Hydralazine HCl (APRESOLine 20MG INJ) 10 mg Q6H PRN IV SBP GREATER THAN 180 01/29/24 19:00 02/28/24 18:59 Insulin Human Regular (humuLIN R 100 UNIT/ML 3ML) INSULIN SLIDING SCAL... ACHS SQ 01/29/24 21:00 02/28/24 20:59 Labetalol HCl (TRANdate 20MG SYG) 10 mg Q2H PRN IV SBP GREATER THAN 160 01/29/24 19:00 02/28/24 18:59 Lactulose (Constulose 20gm/ 30ml Udcup) 20 gm Q6H PRN PO CONSTIPATION 01/29/24 19:00 02/28/24 18:59 01/29/24 23:20 20 GM Lisinopril (Prinivil 2.5mg) 2.5 mg DAILY PO 01/31/24 09:00 01/31/24 05:48 DC Magnesium Sulfate 50 ml @ 0 mls/hr PROTOCOL PRN IV MAGNESIUM PROTOCOL 01/31/24 06:30 03/01/24 06:29 01/31/24 07:34 25 MLS/HR Ondansetron HCl (zoFRAN 4MG INJ) 4 mg Q6H PRN IVP NAUSEA/VOMITING 01/29/24 19:00 02/28/24 18:59 01/31/24 05:11 4 MG Pharmacy Profile Note (Pharmacy Communication) 1 each ONCE MISC 01/30/24 01:00 01/30/24 01:26 DC Sodium Chloride 1,000 ml @ 100 mls/hr Q10H IV 01/30/24 01:00 01/30/24 01:42 DC Temazepam (restORIL 15 MG CAP) 15 mg HS PRN PO INSOMNIA/SLEEP 01/29/24 19:00 02/28/24 18:59 01/31/24 20:25 15 MG DIAGNOSTICS / RADIOLOGY: [ ] ASSESSMENT: CHF exacerbation LVEF 20-25%, per [facility] echo on 01/13/2024 Grade 3 diastolic dysfunction, per [facility] echo on 01/13/2024 Multifocal pneumonia possible secondary to crack lung secondary to cocaine use Lung Infiltrates, rule out TB Negative for PE, per CTA on 01/11/2024 at [facility] Respiratory alkalosis Rhabdomyolysis, CK 451 Acute on chronic kidney disease, GFR 75 Anemia chronic disease Polysubstance abuse, + cocaine on 01/29/24 Hypertension Coronary artery disease Obese, BMI 37.4 History of lyme disease History of a polysubstance abuse positive cocaine and THC PLAN: -Admit to Medical floor with continuous telemetry monitoring -Monitor respiratory status closely. -Continue oxygen therapy as needed. Titrate oxygen prn to keep Spo2>/+=92%. -RT to provide IS and education on use. -Robitussin DM as needed cough. -Lasix 40 b.i.d. -pending pulmonology further recommendations Pending ID further recommendations Monitor AFBs results -Precaution and monitor for fluid overload due to CHF/elevated BNP, low LVEF. -Continue antibiotic therapy: Doxycycline IV and Rocephin IV -p.r.n. medications for: Fever, pain management, nausea, vomiting, constipation, hypertension -Glucometer checks AC & HS needed with insulin regular sliding scale coverage as needed. -Acid-fast bacilli (AFB) -AM labs. - Monitor renal and liver function - Monitor electrolytes and treat accordingly. -GI and DVT prophylaxis ATTESTATION BY PHYSICIAN I have seen and examined the patient. I reviewed the documentation, medical decision making, and treatment plan as noted by the mid-level provider above. I agree with the findings and plan of care. Kesha Fitzpatrick MD, KATAR[employer] B FUNDING COORDINATOR Feb 01, 2024 09:47
[2024-02-01 10:24] LABS: INR 1.57 (0.85-1.15); PROTHROMBIN TIME 16.4 SEC (9.6-11.6)
[2024-02-01 10:26] LABS: PARTIAL THROMBOPLASTIN TIME 26.8 SEC (26.3-35.5)
--- NOTE | 2024-02-01 12:46 | HMCIMG ---
ULTRASOUND ABDOMEN LIMITED INDICATION: Elevated liver function tests COMPARISON: None FINDINGS: The liver is enlarged and increased in echogenicity; no focal lesion demonstrated. Main portal vein is patent, and normal direction of vascular flow demonstrated. The common bile duct diameter measures 5.0 mm. Gallbladder wall edema demonstrated without intraluminal calculi or sludge. No sonographic Jaimes's sign elicited by the ultrasound communication center operator. Wall thickness measures 8.0 mm. Visible portions of the pancreas appear normal. The right kidney measures 11.0 x 7.1 x 5.8 cm,and is normal in echogenicity, without evidence for hydronephrosis.No shadowing stones demonstrated. Trace free fluid demonstrated within the right upper abdomen. IMPRESSION: Findings suggesting acute acalculus cholecystitis. Findings suggesting hepatomegaly and hepatic steatosis or other underlying hepatocellular disease process.
--- NOTE | 2024-02-01 15:00 | PN ---
[facility] PROGRESS NOTE Date Patient Seen: Feb 01, 2024 Time of Visit: 15:00 Supervising Physician: [Dr. Landrum] Primary Care Physician: [[facility]] Outpatient Specialists: [ ] Inpatient Consults: [[facility]] PROBLEM LIST: CHF exacerbation LVEF 25-30%, per [facility] echo on 01/13/2024 Grade 2 diastolic dysfunction, per echo 01/30/2024 Multifocal pneumonia possible secondary to crack lung secondary to cocaine use Lung Infiltrates, rule out TB Negative for PE, per CTA on 01/11/2024 at [facility] Respiratory alkalosis Rhabdomyolysis, CK 707 Acute on chronic kidney disease, GFR 75 Anemia chronic disease Polysubstance abuse, + cocaine on 01/29/24 Hypertension Coronary artery disease Obese, BMI 37.4 History of lyme disease History of a polysubstance abuse positive cocaine and THC Plan: Pulmonary toileting, CPT/IS, Continue pulmicort Pending legionella mycoplasma pneumonia (-) Obtain sputum culture HIV/Hep screening (-) Start flagyl Obtain records from [facility] Pending AFB results Echocardiogram abnormal Follow urine and blood culture PRN duonebs, supplemental oxygen if needed Defer fluids given hx of systolic heart failure Continue doxycycline and rocephin Patient will need to repeat CT chest outpatient in 4-6 weeks INTERVAL HISTORY: [Pressure has been soft overnight but MAP is adequate with most recent MAP at 89. No fever, patient continues on supplemental oxygen. His CT of the chest revealed bilateral reticular nodular pulmonary infiltrates with TB not excluded. Patient continues with excessive phlegm production. BNP shows slightly worsening creatinine of 1.5, mild hyponatremia at 131, no other electrolyte derangement. His Lasix was discontinued yesterday, CK remains elevated at 703. WBC is normal at 8.4. LFT's also slightly elevated at 96 AST and ALT. Pending AFB culture] 01/31 Patient has negative AFB X2, he continues with productive cough. Mycoplasma pneumonia is negative, pending legionella and sputum culture. HIV/Hep screen are negative. Patient's abd U/S shows acute cholecystitis. He admits some nausea but no current abdominal pain, defer to primary for management. He was restarted on lasix 20mg PO daily, blood pressure is curr ently soft, will monitor closely. REVIEW OF SYSTEMS: 12 point ROS reviewed with patient. Pertinent positives mentioned above. Otherwise negative. PHYSICAL EXAM: GENERAL: alert, weak, awake oriented x 3 HEENT: EOMI, Sclera non icteric, moist mucosa NECK: Supple, no JVD, trachea midline LUNGS: Clear breath sounds bilaterally. No wheezes HEART: Regular rate and rhythm. Normal S1 and S2, without murmurs ABD: Abdomen soft, nontender. Bowel sounds present EXT: No clubbing cyanosis, 2+ bilateral edema NEURO: Alert and oriented to person, follows commands Vital Signs (last 8hr) Date Time Temp Pulse Resp B/P (MAP) Pulse Ox O2 Delivery O2 Flow Rate FiO2 02/01/24 11:50 98.1 58 17 88/54 90 Room Air 21 02/01/24 08:00 97 Nasal Cannula* 2 28 02/01/24 07:45 97.7 82 20 110/68 97 Room Air 21 LABS: Hematology Labs: Test 02/01/24 03:11 Range/Units White Blood Count 6.2 # 4.8-10.8 K/uL Red Blood Count 4.26 L 4.50-6.20 MIL/uL Hemoglobin 10.8 L 14.0-18.0 g/dL Hematocrit 34.7 L 42-54 % Mean Corpuscular Volume 81.5 79-99 fL Mean Corpuscular Hemoglobin 25.4 L 27.0-33.0 pg Mean Corpuscular Hemoglobin Concent 31.1 L 32.0-36.0 g/dL Red Cell Distribution Width 16.0 H 11.0-15.5 % Platelet Count 237 130-400 K/uL Mean Platelet Volume 11.7 H 7.5-10.5 fL Immature Granulocyte % (Auto) 0.8 0-1 % Neutrophils (%) (Auto) 67.1 40.0-77.0 % Lymphocytes (%) (Auto) 16.1 L 21.0-51.0 % Monocytes (%) (Auto) 14.8 H 3.0-13.0 % Eosinophils (%) (Auto) 1.0 0.0-8.0 % Basophils (%) (Auto) 0.2 0.0-5.0 % Neutrophils # (Auto) 4.1 1.8-7.7 K/uL Lymphocytes # (Auto) 1.0 1.0-4.8 K/uL Monocytes # (Auto) 0.9 0.1-1.0 K/uL Eosinophils # (Auto) 0.06 0.00-0.70 K/uL Basophils # (Auto) 0.01 0.00-0.20 K/uL Absolute Immature Granulocyte (auto 0.05 0-1 K/uL Nucleated Red Blood Cells 0.0 0.0-0.19 % Chemistry Labs: Test 02/01/24 11:00 02/01/24 08:40 02/01/24 03:11 01/31/24 05:12 Range/Units Whole Blood Glucose 78 70-110 MG/DL Sodium Level 132 L 136-145 mmol/L Potassium Level 4.6 3.5-5.1 mmol/L Chloride Level 96 L 101-111 mmol/L Carbon Dioxide Level 32 21-32 mmol/L Blood Urea Nitrogen 18 7-18 mg/dL Creatinine 1.7 H 0.5-1.3 mg/dL Glomerular Filtration Rate Calc 49 >90 mL/min Random Glucose 90 70-105 mg/dL Uric Acid 6.4 2.6-7.2 mg/dL Total Calcium 8.1 L 8.5-10.1 mg/dL Phosphorus Level 3.6 2.5-4.9 mg/dL Total Bilirubin 2.9 H 0.2-1.0 mg/dL Gamma Glutamyl Transpeptidase 413 H 5-85 U/L Aspartate Amino Transf (AST/SGOT) 888 *H 10-37 U/L Alanine Aminotransferase (ALT/SGPT) 988 *H 12-78 U/L Alkaline Phosphatase 190 H 50-136 U/L Lactate Dehydrogenase 428 H 81-234 U/L Total Protein 5.8 L 6.0-8.3 g/dL Albumin 2.6 L 3.5-5.0 g/dL Triglycerides Level 51 30-200 mg/dL Cholesterol Level 68 <200 mg/dL LDL Cholesterol 47 0-99 mg/dL HDL Cholesterol 17 L 29-71 mg/dL Magnesium Level 2.30 1.80-2.40 mg/dL Total Creatine Kinase 506 #*H 21-232 U/L B-Type Natriuretic Peptide 767 H 0-100 pg/mL Bedside Glucose Comment Notified Nurse Test 01/31/24 04:34 Range/Units Troponin I High Sensitivity 43.9 4-75 ng/L Coagulation Labs: Test 02/01/24 08:40 Range/Units Prothrombin Time 16.4 H 9.6-11.6 SEC Prothromb Time International Ratio 1.57 H 0.85-1.15 Activated Partial Thromboplast Time 26.8 26.3-35.5 SEC DIAGNOSTICS / RADIOLOGY RESULTS: ULTRASOUND ABDOMEN LIMITED INDICATION: Elevated liver function tests COMPARISON: None FINDINGS: The liver is enlarged and increased in echogenicity; no focal lesion demonstrated. Main portal vein is patent, and normal direction of vascular flow demonstrated. The common bile duct diameter measures 5.0 mm. Gallbladder wall edema demonstrated without intraluminal calculi or sludge. No sonographic Jaimes's sign elicited by the ultrasound rubber moulding machine operator. Wall thickness measures 8.0 mm. Visible portions of the pancreas appear normal. The right kidney measures 11.0 x 7.1 x 5.8 cm,and is normal in echogenicity, without evidence for hydronephrosis.No shadowing stones demonstrated. Trace free fluid demonstrated within the right upper abdomen. IMPRESSION: Findings suggesting acute acalculus cholecystitis. Findings suggesting hepatomegaly and hepatic steatosis or other underlying hepatocellular disease process. PLAN NEURO: Minimize central acting medications as possible. Maintain fall precautions, adequate lighting during the day PULMONARY: Supplemental 02 as needed. Maintain aspiration precautions at all times CARDIOVASCULAR: Follow hemodynamics. Vital signs per facility protocol GI & NUTRITION: Continue with nutritional support. Continue stool softeners and laxatives as needed. KIDNEYS & ELECTROLYTES: Strict monitoring of intake, output and overall fluid balance. Avoid nephrotoxic medications to the extent possible. Medications to be dosed according to renal function. Monitor electrolytes and replace as needed ENDOCRINE: Maintain blood glucose between 100-180 at all times. Hypoglycemia protocol in place INFECTIOUS DISEASE: Trend temperature, WBC and procalcitonin level Follow cultures, deescalate antibiotics as soon as possible. Panculture if new onset fever ONCOLOGY/HEMATOLOGY/COAGULATION: Monitor for s/s of bleeding Monitor hemoglobin, coagulation studies as needed SKIN: Pressure ulcer prevention per facility protocol Specialty mattress ORTHO/REHAB: Continue PT/OT Prophylaxis: Continue GI and DVT prophylaxis Code Status: Full Resuscitation Disposition: TBD Other: Total patient care time exceeds 35 minutes excluding all procedures. STEPHEN BEASLEY Feb 01, 2024 15:00
[2024-02-01] MEDS: metRONIDazole 500 MG TABLET PO SCH (15:13)
--- NOTE | 2024-02-01 17:29 | PN ---
DATE OF SERVICE: 02/01/2024. INFECTIOUS DISEASE FOLLOWUP NOTE SUBJECTIVE: The patient is seen and examined at bedside today. The patient has had no fever, no chills. No bleeding tendency. The patient has orthopnea. Denies sore throat or rhinorrhea. Still has some cough and shortness of breath. No depression. No suicidal ideation. Sputum AFBs negative x2. Sputum tuberculosis PCR is negative. PHYSICAL EXAMINATION: VITAL SIGNS: Temperature 96.9. EYES: No icterus. Pupils equal and reactive. HENT: No oral thrush seen. Moist oral mucosa. NECK: Supple, no JVD or thyromegaly. LUNGS: Crackles bilaterally, no rhonchi. CARDIOVASCULAR: S1, S2 regular. No murmur heard. ABDOMEN: Full, soft. Bowel sounds are present. CENTRAL NERVOUS SYSTEM: The patient is awake, alert and oriented x 3. No focal deficits. SKIN: No rashes, no itchiness. LYMPHATIC: No peripheral lymphadenopathy. BACK: No deformity. EXTREMITIES: Pitting edema of lower extremities. ASSESSMENT: A 48-year-old male with multiple problems, which include: * Pneumonia. * Morbid obesity. * [id number] heart failure. * Hypertension. * ____. * Elevated liver enzymes. PLAN: * Continue Lasix. * Continue ceftriaxone. * Continue doxycycline. * Follow up cultures. * Continue GI prophylaxis. * Continue antiemetic. * Monitor hepatic function. TID: [id number] RECEIPT: [id number]
[2024-02-02 03:32] VITALS: BP 121/91; PULSE 90; RESP 22; TEMP 97.5
[2024-02-02 04:48] LABS: BASOPHILS # (AUTO) 0.02 K/uL (0.00-0.20); BASOPHILS % (AUTO) 0.3 % (0.0-5.0); EOSINOPHILS # (AUTO) 0.09 K/uL (0.00-0.70); EOSINOPHILS % (AUTO) 1.5 % (0.0-8.0); HEMATOCRIT 34.5 % (42-54); IMMATURE GRANULOCYTE ABSOLUTE 0.04 K/uL (0-1); LYMPHOCYTES % (AUTO) 16.1 % (21.0-51.0); MEAN CORPUSCULAR HEMOGLOBIN 25.3 pg (27.0-33.0); MEAN CORPUSCULAR HGB CONC 30.4 g/dL (32.0-36.0); MEAN CORPUSCULAR VOLUME 83.1 fL (79-99); MONOCYTES # (AUTO) 0.7 K/uL (0.1-1.0); MONOCYTES % (AUTO) 11.2 % (3.0-13.0); NEUTROPHILS # (AUTO) 4.2 K/uL (1.8-7.7); NEUTROPHILS % (AUTO) 70.2 % (40.0-77.0); PLATELET COUNT (AUTO) 204 K/uL (130-400); RED BLOOD CELL COUNT(AUTO) 4.15 MIL/uL (4.50-6.20)
[2024-02-02 05:05] LABS: INR 1.65 (0.85-1.15); PROTHROMBIN TIME 17.2 SEC (9.6-11.6)
[2024-02-02 05:06] LABS: PARTIAL THROMBOPLASTIN TIME 24.8 SEC (26.3-35.5)
[2024-02-02 05:16] LABS: ALBUMIN 2.6 g/dL (3.5-5.0); BILIRUBIN,TOTAL 3.2 mg/dL (0.2-1.0); CREATININE 1.7 mg/dL (0.5-1.3); MAGNESIUM 2.1 mg/dL (1.80-2.40); TOTAL PROTEIN, SERUM 5.7 g/dL (6.0-8.3)
[2024-02-02 06:54] VITALS: PULSE 77; RESP 22
[2024-02-02 08:00] VITALS: BP 97/67; PULSE 71; RESP 19; TEMP 97.4
[2024-02-02 08:20] VITALS: PULSE 77; RESP 20; O2SAT 100
--- NOTE | 2024-02-02 08:47 | PN ---
[facility] PROGRESS NOTE Date of Service: Feb 02, 2024 Time of Service: 08:44 SUBJECTIVE: [ 01/28 Mr. Eldridge is a 48-year-old male with history of CHF, heart disease, hypertension, Lyme disease who presented to [facility] ED for evaluation of worsening shortness of breath. Patient patient reported that he presented to [facility] ED on 01/11/2024 evening was admitted diagnosed with pneumonia and was placed on isolation for evaluated for possible tuberculosis. IP [facility] patient was receiving Zithromax IV, Rocephin IV, and Solu- Medrol. The patient reports that he did not like the care of [place] [facility] and left AMA on 01/13/2024. at bedside reports that the sputum results for TB were never done and they were never updated on the patient's status therefore the patient left AMA. EKG: Sinus tachycardia, heart rate 116 beats per minute. Chest x-ray: 1. Right upper lobe infiltrate which could be early or mild pneumonia. 2. Mild cardiomegaly accentuated by a lordotic projection. Remarkable lab results: Hemoglobin 11.1, hematocrit 35.0, RBC 4.29. Lactic acid 2.3, GFR 75, total calcium 8.1, magnesium 1.9, CK 451, BNP 773. 01/29 patient was seen by nurse practitioner and physician during rounding in room 417 comfortably lying in the bed. Patient was evaluated by operational intelligence analyst and at this moment they will recommend furosemide 40 mg b.i.d. and 2D echo. BNP 773. We are still pending further recommendations/evaluation by reporting specialist. Per case management patient to be discharged home once medically stable. Blood culture urine culture still pending. Patient continues to be on doxycycline and Rocephin. We will continue to monitor the patient a.m. labs 01/30 patient was seen by nurse practitioner and physician during rounding in room 417. Family member at the bedside and patient was sitting comfortably in the bed. 2D echo showed 25 to 30% stage I diastolic dysfunction. One AFB was ready obtain yesterday 01/29 another AFB was just obtain right now today 01/30. The 3rd AFB to be obtained tomorrow 01/31. QuantiFERON gold was also ordered. We are pending further evaluation/recommendations of reporting specialist and ID. We will continue to monitor patient in the meantime. A.m. labs. 01/31 patient was seen by [employer] SUPERVISOR and physician. Patient was evaluated by the operational intelligence analyst and was not able to tolerate lisinopril. Patient will continue on furosemide 40 mg b.i.d. hold it if systolic less than 90. 2D echo 25 to 30% stage I diastolic dysfunction. Three AFBs were already obtained and sent to the lab. Blood culture still pending results and sputum culture pending results. Urine final culture is negative. Patient continues to be on doxycycline and Rocephin per ID. We will continue to monitor patient in the meantime. A.m. labs.] 02/01 48-year-old male admitted due to worsening of shortness of breaths. Patient was admitted with pneumonia and was placed on isolation to rule out TB. So far we are pending AFB. At the same rate, patient was also noted with EF of 25%-30% stage I diastolic dysfunction. Due to elevated LFTs, patient had an abdominal ultrasound which showed acalculous cholecystitis. Findings suggesting hepatomegaly and hepatic steatosis or other underlying hepatocellular disease process. Awaiting for GI recommendations. REVIEW OF SYSTEMS 12-point ROS reviewed with patient. All pertinent positives mentioned above. Otherwise negative, nonpertinent, or noncontributory. PHYSICAL EXAM GENERAL APPEARANCE: The patient is awake, alert, and oriented, in no acute cardiopulmonary distress. NEUROLOGICAL: Cranial nerves II-XII grossly intact. Motor is 5/5 in bilateral upper and lower extremities proximal to distal. No sensory deficits. HEENT: Face is symmetric. Pupils are equal and reactive. Extraocular movements are intact. NECK: Supple. No JVD. No thyromegaly. No submental, submandibular, pre- /postauricular, occipital or supraclavicular lymphadenopathy. CHEST: Normal chest expansion. No Telemetry. LUNGS: Diminished. Breathing is even and unlabored at rest. Absence of any rales, rhonchi or any wheezing. CARDIOVASCULAR: Regular. S1 and S2 normal. No appreciable rubs, murmurs or gallops. ABDOMEN: Soft, nontender, and nondistended. There is no rebound, voluntary guarding, or rigidity. : Deferred. No Jesus. EXTREMITIES: Non-edematous and not cyanotic. No clubbing. Good capillary refill. SKIN: No skin breakdown. Vital Signs (last 8hr) Date Time Temp Pulse Resp B/P (MAP) Pulse Ox O2 Delivery O2 Flow Rate FiO2 02/02/24 08:00 97.3 71 19 97/67 90 Nasal Cannula 2.0 02/02/24 03:32 97.5 90 22 121/91 93 Nasal Cannula 2.0 LABS: Laboratory: Test 02/02/24 05:29 02/02/24 04:17 02/01/24 08:40 02/01/24 03:11 Range/Units Whole Blood Glucose 110 # 70-110 MG/DL White Blood Count 6.0 4.8-10.8 K/uL Red Blood Count 4.15 L 4.50-6.20 MIL/uL Hemoglobin 10.5 L 14.0-18.0 g/dL Hematocrit 34.5 L 42-54 % Mean Corpuscular Volume 83.1 79-99 fL Mean Corpuscular Hemoglobin 25.3 L 27.0-33.0 pg Mean Corpuscular Hemoglobin Concent 30.4 L 32.0-36.0 g/dL Red Cell Distribution Width 16.0 H 11.0-15.5 % Platelet Count 204 130-400 K/uL Mean Platelet Volume 11.8 H 7.5-10.5 fL Immature Granulocyte % (Auto) 0.7 0-1 % Neutrophils (%) (Auto) 70.2 40.0-77.0 % Lymphocytes (%) (Auto) 16.1 L 21.0-51.0 % Monocytes (%) (Auto) 11.2 3.0-13.0 % Eosinophils (%) (Auto) 1.5 0.0-8.0 % Basophils (%) (Auto) 0.3 0.0-5.0 % Neutrophils # (Auto) 4.2 1.8-7.7 K/uL Lymphocytes # (Auto) 1.0 1.0-4.8 K/uL Monocytes # (Auto) 0.7 0.1-1.0 K/uL Eosinophils # (Auto) 0.09 0.00-0.70 K/uL Basophils # (Auto) 0.02 0.00-0.20 K/uL Absolute Immature Granulocyte (auto 0.04 0-1 K/uL Nucleated Red Blood Cells 0.0 0.0-0.19 % Prothrombin Time 17.2 H 9.6-11.6 SEC Prothromb Time International Ratio 1.65 H 0.85-1.15 Activated Partial Thromboplast Time 24.8 L 26.3-35.5 SEC Sodium Level 131 L 136-145 mmol/L Potassium Level 4.0 3.5-5.1 mmol/L Chloride Level 97 L 101-111 mmol/L Carbon Dioxide Level 31 21-32 mmol/L Blood Urea Nitrogen 19 H 7-18 mg/dL Creatinine 1.7 H 0.5-1.3 mg/dL Glomerular Filtration Rate Calc 49 >90 mL/min Random Glucose 94 70-105 mg/dL Total Calcium 7.7 L 8.5-10.1 mg/dL Magnesium Level 2.10 1.80-2.40 mg/dL Total Bilirubin 3.2 H 0.2-1.0 mg/dL Aspartate Amino Transf (AST/SGOT) 946 *H 10-37 U/L Alanine Aminotransferase (ALT/SGPT) 1242 #*H 12-78 U/L Alkaline Phosphatase 292 #H 50-136 U/L Total Protein 5.7 L 6.0-8.3 g/dL Albumin 2.6 L 3.5-5.0 g/dL Uric Acid 6.4 2.6-7.2 mg/dL Phosphorus Level 3.6 2.5-4.9 mg/dL Gamma Glutamyl Transpeptidase 413 H 5-85 U/L Lactate Dehydrogenase 428 H 81-234 U/L Triglycerides Level 51 30-200 mg/dL Cholesterol Level 68 <200 mg/dL LDL Cholesterol 47 0-99 mg/dL HDL Cholesterol 17 L 29-71 mg/dL Total Creatine Kinase 506 #*H 21-232 U/L B-Type Natriuretic Peptide 767 H 0-100 pg/mL Test 01/31/24 10:09 Range/Units Hepatitis A IgM Antibody Non-Reactive Nonreactive Hepatitis B Surface Antigen. Non-Reactive Nonreactive Hepatitis B Core IgM Antibody Non-Reactive Negative Hepatitis C Antibody Non-Reactive Nonreactive HIV (1&2) Antibody Non-Reactive Negative HIV P24 Antigen, Qualitative Non-Reactive Negative Current Medications Medications (Trade) Dose Ordered Sig/Ramon Route PRN Reason Start Time Stop Time Status Last Admin Dose Admin Acetaminophen (TYLenol 325MG TAB) 650 mg Q6H PRN PO FEVER/MILD PAIN LEVEL 1-3 01/29/24 19:00 02/28/24 18:59 02/01/24 22:00 650 MG Acetaminophen (TYLenol 650MG SUPPOSITORY) 650 mg Q6H PRN RC FEVER / MILD PAIN 1-3 IF NPO 01/29/24 19:00 02/28/24 18:59 Acetylcysteine (MUComyst 20% 4ML) 400 mg Q6H IH 01/30/24 14:30 01/30/24 22:57 DC Acetylcysteine (MUComyst 20% 4ML) 400 mg Q6H PO 01/30/24 01:00 01/30/24 14:05 DC Albuterol Sulfate (Ventolin Hfa) 2 PUFFS Q6H IH 01/30/24 02:00 02/29/24 01:59 02/02/24 02:16 2 INH Aspirin (Aspirin 81mg Chew Tab) 81 mg DAILY PO 01/30/24 09:00 02/29/24 08:59 02/01/24 09:14 81 MG Atorvastatin Calcium (LIPItor 40MG) 40 mg HS PO 01/30/24 21:00 02/01/24 10:12 DC 01/31/24 20:26 40 MG Azithromycin 250 ml @ 250 mls/hr Q24H STAT IVPB 01/29/24 17:49 01/29/24 18:48 DC 01/29/24 18:05 250 MLS/HR Budesonide (Pulmicort 0.5 Mg/2ml) 0.5 mg BIDRESP IH 01/31/24 18:00 03/01/24 17:59 02/02/24 06:54 0.5 MG Ceftriaxone Sodium (ROCEphine 1G INJ) 1 gm DAILY15 IVP 01/30/24 15:00 02/09/24 14:59 02/01/24 14:16 1 GM Cetirizine HCl (ZYRtec 5 MG TABLET) 10 mg DAILY20 PO 01/30/24 01:10 02/29/24 01:09 02/01/24 21:52 10 MG Docusate Sodium (COLace 100MG CAP) 100 mg BID PRN PO c 01/29/24 19:00 02/28/24 18:59 Doxycycline Hyclate (Doxycycline 100mg+NS 250ml) 100 mg BID IV 01/29/24 23:00 02/08/24 22:59 02/01/24 21:53 100 MG Enoxaparin Sodium (Lovenox) 40 mg DAILY SQ 01/30/24 09:00 02/29/24 08:59 02/01/24 09:14 40 MG Famotidine (Pepcid 20mg Tab) 20 mg BID PO 01/29/24 21:00 02/28/24 20:59 02/01/24 21:52 20 MG Furosemide (LASix 20MG TAB) 20 mg BID@09,17 PO 02/01/24 09:00 03/02/24 08:59 02/01/24 09:14 20 MG Furosemide (LASix 20MG VIAL) 20 mg Q12H IV 01/30/24 09:00 01/30/24 11:01 DC 01/30/24 08:43 20 MG Furosemide (LASix 20MG VIAL) 40 mg Q12H IV 01/30/24 21:00 01/30/24 16:44 DC Guaifenesin/ Codeine Phosphate (RobiTUSSin AC 5 ML SYRUP) 20 ml DAILY20 PO 01/30/24 00:01 02/29/24 00:00 02/01/24 21:52 20 ML Guaifenesin/ Dextromethorphan (RobiTUSSin DM 200/20MG 10ML) 15 ml Q4H PRN PO COUGH 01/29/24 23:00 02/28/24 22:59 02/01/24 15:14 15 ML Hydralazine HCl (APRESOLine 20MG INJ) 10 mg Q6H PRN IV SBP GREATER THAN 180 01/29/24 19:00 02/28/24 18:59 Insulin Human Regular (humuLIN R 100 UNIT/ML 3ML) INSULIN SLIDING SCAL... ACHS SQ 01/29/24 21:00 02/28/24 20:59 Labetalol HCl (TRANdate 20MG SYG) 10 mg Q2H PRN IV SBP GREATER THAN 160 01/29/24 19:00 02/28/24 18:59 Lactulose (Constulose 20gm/ 30ml Udcup) 20 gm Q6H PRN PO CONSTIPATION 01/29/24 19:00 02/28/24 18:59 02/01/24 14:16 20 GM Lisinopril (Prinivil 2.5mg) 2.5 mg DAILY PO 01/31/24 09:00 01/31/24 05:48 DC Magnesium Sulfate 50 ml @ 0 mls/hr PROTOCOL PRN IV MAGNESIUM PROTOCOL 01/31/24 06:30 03/01/24 06:29 01/31/24 07:34 25 MLS/HR Metronidazole (flaGYL) 500 mg Q8H PO 02/01/24 15:00 02/11/24 14:59 02/02/24 06:35 500 MG Ondansetron HCl (zoFRAN 4MG INJ) 4 mg Q6H PRN IVP NAUSEA/VOMITING 01/29/24 19:00 02/28/24 18:59 02/01/24 15:14 4 MG Pharmacy Profile Note (Pharmacy Communication) 1 each ONCE MISC 01/30/24 01:00 01/30/24 01:26 DC Sodium Chloride 1,000 ml @ 100 mls/hr Q10H IV 01/30/24 01:00 01/30/24 01:42 DC Temazepam (restORIL 15 MG CAP) 15 mg HS PRN PO INSOMNIA/SLEEP 01/29/24 19:00 02/28/24 18:59 02/01/24 21:52 15 MG DIAGNOSTICS / RADIOLOGY: [ ] ASSESSMENT: Acalculous cholecystitis by abdominal ultrasound, POA CHF exacerbation LVEF 20-25%, per [facility] [place] 01/13/2024 Grade 3 diastolic dysfunction, per [facility] [place] on 01/13/2024 Multifocal pneumonia possible secondary to crack lung secondary to cocaine use Lung Infiltrates, rule out TB Negative for PE, per CTA on 01/11/2024 at [facility] Respiratory alkalosis Rhabdomyolysis, CK 451 Acute on chronic kidney disease, GFR 75 Anemia chronic disease Polysubstance abuse, + cocaine on 01/29/24 Hypertension Coronary artery disease Obese, BMI 37.4 History of lyme disease History of a polysubstance abuse positive cocaine and THC PLAN: -Admit to Medical floor with continuous telemetry monitoring -Monitor respiratory status closely. -Continue oxygen therapy as needed. Titrate oxygen prn to keep Spo2>/+=92%. -RT to provide IS and education on use. -Robitussin DM as needed cough. -Lasix 40 b.i.d. -ID and pulmonology on board we will follow their recommendations Monitor AFBs results -Precaution and monitor for fluid overload due to CHF/elevated BNP, low LVEF. -Continue antibiotic therapy: Doxycycline IV and Rocephin IV -p.r.n. medications for: Fever, pain management, nausea, vomiting, constipation, hypertension -Glucometer checks AC & HS needed with insulin regular sliding scale coverage as needed. -Acid-fast bacilli (AFB) -regarding acalculous cholecystitis, we are awaiting for GI recommendation, patient will probably have surgical consult -AM labs. - Monitor renal and liver function - Monitor electrolytes and treat accordingly. -GI and DVT prophylaxis Case seen and discussed with Dr. Fitzpatrick, above plan was formulated ATTESTATION BY PHYSICIAN I have seen and examined the patient. I reviewed the documentation, medical decision making, and treatment plan as noted by the mid-level provider above. I agree with the findings and plan of care. Kesha Fitzpatrick MD, [facility] Feb 02, 2024 08:47
--- NOTE | 2024-02-02 09:33 | PN ---
[facility] CARDIOLOGY PROGRESS NOTE Cardiology progress note dictated for Negar Varela MD Primary student outreach coordinator: Mitchell Morley MD Date Patient Seen: Feb 02, 2024 Interval History: The patient is in bed with a non-productive cough, he admits to orthopnea. The patient is being worked up by ID for TB. He was positive for cocaine. He did not tolerate 2.5 mg dose of lisinopril. LFTs have continued to rise. Abd US on 02/01/2024 revealed acute acalculus cholecystitis, hepatomegaly and hepatic steatosis. Pending a GI consult. Renal function has deteriorated with a creatinine rising to 1.7. Physical Examination: EYES: Anicteric. Pupils equal and reactive. HENT: No oral thrush seen, moist Oral mucosa NECK: Supple, thyromegaly, JVD noted. LUNGS: Rales bilaterally. On o2 at 2L via NC. CARDIOVASCULAR: S1, S2 regular. No murmur heard. BLE with 2+ pitting edema. ABDOMEN: Soft, non tender, bowel sounds present, no organomegaly. CENTRAL NERVOUS SYSTEM: Awake, alert, oriented x 3. SKIN: No rashes, no swelling. LYMPHATICS: No peripheral lymphadenopathy MUSCULOSKELETAL: No joint swelling, erythema or tenderness. EXTREMITIES: No cyanosis or clubbing. Bilateral DP pulses 2+. BACK: No deformity, no pressure ulcer. GENITOURINARY: No dysuria or hematuria Laboratory: Hematology Labs: Test 02/02/24 04:17 Range/Units White Blood Count 6.0 4.8-10.8 K/uL Red Blood Count 4.15 L 4.50-6.20 MIL/uL Hemoglobin 10.5 L 14.0-18.0 g/dL Hematocrit 34.5 L 42-54 % Mean Corpuscular Volume 83.1 79-99 fL Mean Corpuscular Hemoglobin 25.3 L 27.0-33.0 pg Mean Corpuscular Hemoglobin Concent 30.4 L 32.0-36.0 g/dL Red Cell Distribution Width 16.0 H 11.0-15.5 % Platelet Count 204 130-400 K/uL Mean Platelet Volume 11.8 H 7.5-10.5 fL Immature Granulocyte % (Auto) 0.7 0-1 % Neutrophils (%) (Auto) 70.2 40.0-77.0 % Lymphocytes (%) (Auto) 16.1 L 21.0-51.0 % Monocytes (%) (Auto) 11.2 3.0-13.0 % Eosinophils (%) (Auto) 1.5 0.0-8.0 % Basophils (%) (Auto) 0.3 0.0-5.0 % Neutrophils # (Auto) 4.2 1.8-7.7 K/uL Lymphocytes # (Auto) 1.0 1.0-4.8 K/uL Monocytes # (Auto) 0.7 0.1-1.0 K/uL Eosinophils # (Auto) 0.09 0.00-0.70 K/uL Basophils # (Auto) 0.02 0.00-0.20 K/uL Absolute Immature Granulocyte (auto 0.04 0-1 K/uL Nucleated Red Blood Cells 0.0 0.0-0.19 % Chemistry Labs: Test 02/02/24 05:29 02/02/24 04:17 02/01/24 08:40 02/01/24 03:11 Range/Units Whole Blood Glucose 110 # 70-110 MG/DL Sodium Level 131 L 136-145 mmol/L Potassium Level 4.0 3.5-5.1 mmol/L Chloride Level 97 L 101-111 mmol/L Carbon Dioxide Level 31 21-32 mmol/L Blood Urea Nitrogen 19 H 7-18 mg/dL Creatinine 1.7 H 0.5-1.3 mg/dL Glomerular Filtration Rate Calc 49 >90 mL/min Random Glucose 94 70-105 mg/dL Total Calcium 7.7 L 8.5-10.1 mg/dL Magnesium Level 2.10 1.80-2.40 mg/dL Total Bilirubin 3.2 H 0.2-1.0 mg/dL Aspartate Amino Transf (AST/SGOT) 946 *H 10-37 U/L Alanine Aminotransferase (ALT/SGPT) 1242 #*H 12-78 U/L Alkaline Phosphatase 292 #H 50-136 U/L Total Protein 5.7 L 6.0-8.3 g/dL Albumin 2.6 L 3.5-5.0 g/dL Uric Acid 6.4 2.6-7.2 mg/dL Phosphorus Level 3.6 2.5-4.9 mg/dL Gamma Glutamyl Transpeptidase 413 H 5-85 U/L Lactate Dehydrogenase 428 H 81-234 U/L Triglycerides Level 51 30-200 mg/dL Cholesterol Level 68 <200 mg/dL LDL Cholesterol 47 0-99 mg/dL HDL Cholesterol 17 L 29-71 mg/dL Total Creatine Kinase 506 #*H 21-232 U/L B-Type Natriuretic Peptide 767 H 0-100 pg/mL Coagulation Labs: Test 02/02/24 04:17 Range/Units Prothrombin Time 17.2 H 9.6-11.6 SEC Prothromb Time International Ratio 1.65 H 0.85-1.15 Activated Partial Thromboplast Time 24.8 L 26.3-35.5 SEC Diagnostics / Radiology: Impression and Plan: 1. Acute on chronic combined systolic and diastolic heart failure with a BNP level of 773 2. Dilated cardiomyopathy with ejection fraction of 25-30%, stage II diastolic dysfunction, and moderate MR and TR by 2D Echo on 01/30/2024 3. Bilateral reticulonodular pulmonary infiltrates of concern for possible TB versus pneumonia 4. Polysubstance abuse including cocaine 5. Hypertension 6. Remote history of Lyme disease 7. NATAN, creatinine rising to 1.7 8. Transaminitis 9. Community-acquired pneumonia 10. Acute acalculus cholecystitis, hepatomegaly and hepatic steatosis The patient continues with marginal blood pressure. He did not tolerate lisinopril 2.5mg daily due to hypotension. He is not a candidate for GDMT. There has been a 0.6kg decrease in his weight over the last 24hrs. If his renal, hepatic, and pulmonary indices improve, he would benefit from some type of ischemic evaluation. Acute acalculus cholecystitis, hepatomegaly and hepatic steatosis was found on the abdominal US, pending GI recommendations.The patient admitted he would like to leave A, we did advise against it as his condition is worrisome. He did agree to receive IV Lasix for now. We recommend aggressive diuresis, increase Lasix to 80mg IV q 8hours, hold for sbp <90mmHg. VICKY CESAR [facility] Feb 02, 2024 09:33
--- NOTE | 2024-02-02 11:02 | PN ---
INFECTIOUS DISEASE PROGRESS NOTE Date of Service: Feb 02, 2024 SUBJECTIVE: This is a 48-year-old male patient who was seen and examined in room 417. Patient is awake, alert and oriented x3. Patient is sitting up on the edge of the bed. Continue with right lower extremity swollen and remains on diuretics. No dyspnea observe but continues on oxygen via nasal cannula at 2 liters/minute. Patient is afebrile, temperature is 97.3. Sputum culture x two so far has been negative for the presence of acid-fast bacilli. Patient continues on ceftriaxone and doxycycline IV. Patient with elevated liver enzymes and a abdominal ultrasound showing acute acalculous cholecystitis. Pending a General surgery evaluation. Patient was nauseated yesterday but no nausea or vomiting today. We will continue to monitor patient's care. PHYSICAL EXAM EYES: Anicteric. Pupils equal and reactive. HENT: No oral thrush seen, moist Oral mucosa NECK: Supple, no JVD or thyromegaly. LUNGS: Good air entry. No rales, no rhonchi. Oxygen via nasal cannula2 L. CARDIOVASCULAR: S1, S2 regular. No murmur heard. ABDOMEN: Soft, non tender, bowel sounds present, no organomegaly. CENTRAL NERVOUS SYSTEM: Awake, alert, oriented x 3. SKIN: No rashes, no swelling. LYMPHATICS: No peripheral lymphadenopathy MUSCULOSKELETAL: No joint swelling, erythema or tenderness. EXTREMITIES: No cyanosis or clubbing. BACK: No deformity, no pressure ulcer. GENITOURINARY: No dysuria or hematuria Vital Sign (Last 12 Hours) 02/01/24 02/02/24 02/02/24 02/02/24 23:41 03:32 06:54 08:00 Temp 97.9 97.5 97.3 Pulse 110 90 77 71 Resp 20 22 22 19 B/P (MAP) 109/75 121/91 97/67 Pulse Ox 94 93 90 O2 Delivery Nasal Cannula Nasal Cannula Nasal Cannula O2 Flow Rate 2.0 2.0 2.0 Intake & Output (last 24hrs) 02/01/24 02/01/24 02/02/24 15:00 23:00 07:00 Intake Total 580.0 ml Output Total 600 ml Balance -20.0 ml LABS: Laboratory: Test 02/02/24 05:29 02/02/24 04:17 02/01/24 08:40 02/01/24 03:11 Range/Units Whole Blood Glucose 110 # 70-110 MG/DL White Blood Count 6.0 4.8-10.8 K/uL Red Blood Count 4.15 L 4.50-6.20 MIL/uL Hemoglobin 10.5 L 14.0-18.0 g/dL Hematocrit 34.5 L 42-54 % Mean Corpuscular Volume 83.1 79-99 fL Mean Corpuscular Hemoglobin 25.3 L 27.0-33.0 pg Mean Corpuscular Hemoglobin Concent 30.4 L 32.0-36.0 g/dL Red Cell Distribution Width 16.0 H 11.0-15.5 % Platelet Count 204 130-400 K/uL Mean Platelet Volume 11.8 H 7.5-10.5 fL Immature Granulocyte % (Auto) 0.7 0-1 % Neutrophils (%) (Auto) 70.2 40.0-77.0 % Lymphocytes (%) (Auto) 16.1 L 21.0-51.0 % Monocytes (%) (Auto) 11.2 3.0-13.0 % Eosinophils (%) (Auto) 1.5 0.0-8.0 % Basophils (%) (Auto) 0.3 0.0-5.0 % Neutrophils # (Auto) 4.2 1.8-7.7 K/uL Lymphocytes # (Auto) 1.0 1.0-4.8 K/uL Monocytes # (Auto) 0.7 0.1-1.0 K/uL Eosinophils # (Auto) 0.09 0.00-0.70 K/uL Basophils # (Auto) 0.02 0.00-0.20 K/uL Absolute Immature Granulocyte (auto 0.04 0-1 K/uL Nucleated Red Blood Cells 0.0 0.0-0.19 % Prothrombin Time 17.2 H 9.6-11.6 SEC Prothromb Time International Ratio 1.65 H 0.85-1.15 Activated Partial Thromboplast Time 24.8 L 26.3-35.5 SEC Sodium Level 131 L 136-145 mmol/L Potassium Level 4.0 3.5-5.1 mmol/L Chloride Level 97 L 101-111 mmol/L Carbon Dioxide Level 31 21-32 mmol/L Blood Urea Nitrogen 19 H 7-18 mg/dL Creatinine 1.7 H 0.5-1.3 mg/dL Glomerular Filtration Rate Calc 49 >90 mL/min Random Glucose 94 70-105 mg/dL Total Calcium 7.7 L 8.5-10.1 mg/dL Magnesium Level 2.10 1.80-2.40 mg/dL Total Bilirubin 3.2 H 0.2-1.0 mg/dL Aspartate Amino Transf (AST/SGOT) 946 *H 10-37 U/L Alanine Aminotransferase (ALT/SGPT) 1242 #*H 12-78 U/L Alkaline Phosphatase 292 #H 50-136 U/L Total Protein 5.7 L 6.0-8.3 g/dL Albumin 2.6 L 3.5-5.0 g/dL Uric Acid 6.4 2.6-7.2 mg/dL Phosphorus Level 3.6 2.5-4.9 mg/dL Gamma Glutamyl Transpeptidase 413 H 5-85 U/L Lactate Dehydrogenase 428 H 81-234 U/L Triglycerides Level 51 30-200 mg/dL Cholesterol Level 68 <200 mg/dL LDL Cholesterol 47 0-99 mg/dL HDL Cholesterol 17 L 29-71 mg/dL Total Creatine Kinase 506 #*H 21-232 U/L B-Type Natriuretic Peptide 767 H 0-100 pg/mL ASSESSMENT: Right upper lobe Pneumonia. Possible tuberculosis. Acute acalculous cholecystitis. Acute on chronic heart failure. Acute on chronic renal failure. Cocaine abuse. Elevated liver enzymes. PLAN: Continue ceftriaxone. Continue doxycycline. Continue GI prophylaxis. We will follow up on the final culture results. Continue pain management. Continue bronchodilators. Continue oxygen support. Avoid nephrotoxic medication. Currently on diuretics. Pending a surgical evaluation. This case was reviewed and discussed with my supervising physician and the above assessment and plan was formulated and agreed upon. ATTESTATION BY PHYSICIAN I have seen and examined the patient. I reviewed the documentation, medical decision making, and treatment plan as noted by the mid-level provider above. I agree with the findings and plan of care. ARMIDA BAXTER MD, [facility] Feb 02, 2024 11:02
[2024-02-02 12:00] VITALS: BP 95/68; PULSE 63; RESP 19; TEMP 98
--- NOTE | 2024-02-02 12:33 | PN ---
[facility] PROGRESS NOTE Date Patient Seen: Feb 02, 2024 Time of Visit: 12:26 Supervising Physician: [Dr. Aguilar] Primary Care Physician: [[facility]] Outpatient Specialists: [ ] Inpatient Consults: [[facility]-pulmonary] PROBLEM LIST: CHF exacerbation LVEF 25-30%, per [facility] echo on 01/13/2024 Grade 2 diastolic dysfunction, per echo 01/30/2024 Multifocal pneumonia possible secondary to crack lung secondary to cocaine use Lung Infiltrates, rule out TB Negative for PE, per CTA on 01/11/2024 at [facility] Respiratory alkalosis Rhabdomyolysis, CK 707 Acute on chronic kidney disease, GFR 75 Anemia chronic disease Polysubstance abuse, + cocaine on 01/29/24 Hypertension Coronary artery disease Obese, BMI 37.4 History of lyme disease History of a polysubstance abuse positive cocaine and THC Plan: Pulmonary toileting, CPT/IS, Continue pulmicort Pending legionella mycoplasma pneumonia (-) sputum culture shows normal nataly HIV/Hep screening (-) Continue flagyl Obtain records from [facility] Pending 3rd AFB result Echocardiogram abnormal Follow urine and blood culture PRN duonebs, supplemental oxygen if needed Defer fluids given hx of systolic heart failure Continue doxycycline and rocephin Patient will need to repeat CT chest outpatient in 4-6 weeks INTERVAL HISTORY: [Pressure has been soft overnight but MAP is adequate with most recent MAP at 89. No fever, patient continues on supplemental oxygen. His CT of the chest revealed bilateral reticular nodular pulmonary infiltrates with TB not excluded. Patient continues with excessive phlegm production. BNP shows slightly worsening creatinine of 1.5, mild hyponatremia at 131, no other electrolyte derangement. His Lasix was discontinued yesterday, CK remains elevated at 703. WBC is normal at 8.4. LFT's also slightly elevated at 96 AST and ALT. Pending AFB culture] 01/31 Patient has negative AFB X2, he continues with productive cough. Mycoplasma pneumonia is negative, pending legionella and sputum culture. HIV/Hep screen are negative. Patient's abd U/S shows acute cholecystitis. He admits some nausea but no current abdominal pain, defer to primary for management. He was restarted on lasix 20mg PO daily, blood pressure is currently soft, will monitor closely. 02/01 Patient has elevated bilirubin and LFT's. Abd U/S is consistent with acute cholecystitis, pending general surgery eval. WBC is WNL. He continues on lasix 20mg PO BID, creatinine is elevated but unchanged at 1.7. Blood pressures remain soft but SBP >90. Pending final AFB. Sputum culture shows normal nataly. Patient states cough with phelgm is gradually improved. He continues on antibiotics. He continues with nausea but no vomiting or abdominal pain currently. REVIEW OF SYSTEMS: 12 point ROS reviewed with patient. Pertinent positives mentioned above. Otherwise negative. PHYSICAL EXAM: GENERAL: alert, weak, awake oriented x 3 HEENT: EOMI, Sclera non icteric, moist mucosa NECK: Supple, no JVD, trachea midline LUNGS: Clear breath sounds bilaterally. No wheezes HEART: Regular rate and rhythm. Normal S1 and S2, without murmurs ABD: Abdomen soft, nontender. Bowel sounds present EXT: No clubbing cyanosis, 2+ bilateral edema NEURO: Alert and oriented to person, follows commands Vital Signs (last 8hr) Date Time Temp Pulse Resp B/P (MAP) Pulse Ox O2 Delivery O2 Flow Rate FiO2 02/02/24 08:20 77 20 N/Cannula Low lpm 2.0 28 02/02/24 08:00 Nasal Cannula* 2 28 02/02/24 08:00 97.3 71 19 97/67 90 Nasal Cannula 2.0 02/02/24 06:54 77 22 LABS: Hematology Labs: Test 02/02/24 04:17 Range/Units White Blood Count 6.0 4.8-10.8 K/uL Red Blood Count 4.15 L 4.50-6.20 MIL/uL Hemoglobin 10.5 L 14.0-18.0 g/dL Hematocrit 34.5 L 42-54 % Mean Corpuscular Volume 83.1 79-99 fL Mean Corpuscular Hemoglobin 25.3 L 27.0-33.0 pg Mean Corpuscular Hemoglobin Concent 30.4 L 32.0-36.0 g/dL Red Cell Distribution Width 16.0 H 11.0-15.5 % Platelet Count 204 130-400 K/uL Mean Platelet Volume 11.8 H 7.5-10.5 fL Immature Granulocyte % (Auto) 0.7 0-1 % Neutrophils (%) (Auto) 70.2 40.0-77.0 % Lymphocytes (%) (Auto) 16.1 L 21.0-51.0 % Monocytes (%) (Auto) 11.2 3.0-13.0 % Eosinophils (%) (Auto) 1.5 0.0-8.0 % Basophils (%) (Auto) 0.3 0.0-5.0 % Neutrophils # (Auto) 4.2 1.8-7.7 K/uL Lymphocytes # (Auto) 1.0 1.0-4.8 K/uL Monocytes # (Auto) 0.7 0.1-1.0 K/uL Eosinophils # (Auto) 0.09 0.00-0.70 K/uL Basophils # (Auto) 0.02 0.00-0.20 K/uL Absolute Immature Granulocyte (auto 0.04 0-1 K/uL Nucleated Red Blood Cells 0.0 0.0-0.19 % Chemistry Labs: Test 02/02/24 12:04 02/02/24 04:17 02/01/24 08:40 02/01/24 03:11 Range/Units Whole Blood Glucose 93 70-110 MG/DL Sodium Level 131 L 136-145 mmol/L Potassium Level 4.0 3.5-5.1 mmol/L Chloride Level 97 L 101-111 mmol/L Carbon Dioxide Level 31 21-32 mmol/L Blood Urea Nitrogen 19 H 7-18 mg/dL Creatinine 1.7 H 0.5-1.3 mg/dL Glomerular Filtration Rate Calc 49 >90 mL/min Random Glucose 94 70-105 mg/dL Total Calcium 7.7 L 8.5-10.1 mg/dL Magnesium Level 2.10 1.80-2.40 mg/dL Total Bilirubin 3.2 H 0.2-1.0 mg/dL Aspartate Amino Transf (AST/SGOT) 946 *H 10-37 U/L Alanine Aminotransferase (ALT/SGPT) 1242 #*H 12-78 U/L Alkaline Phosphatase 292 #H 50-136 U/L Total Protein 5.7 L 6.0-8.3 g/dL Albumin 2.6 L 3.5-5.0 g/dL Uric Acid 6.4 2.6-7.2 mg/dL Phosphorus Level 3.6 2.5-4.9 mg/dL Gamma Glutamyl Transpeptidase 413 H 5-85 U/L Lactate Dehydrogenase 428 H 81-234 U/L Triglycerides Level 51 30-200 mg/dL Cholesterol Level 68 <200 mg/dL LDL Cholesterol 47 0-99 mg/dL HDL Cholesterol 17 L 29-71 mg/dL Total Creatine Kinase 506 #*H 21-232 U/L B-Type Natriuretic Peptide 767 H 0-100 pg/mL Coagulation Labs: Test 02/02/24 04:17 Range/Units Prothrombin Time 17.2 H 9.6-11.6 SEC Prothromb Time International Ratio 1.65 H 0.85-1.15 Activated Partial Thromboplast Time 24.8 L 26.3-35.5 SEC DIAGNOSTICS / RADIOLOGY RESULTS: ULTRASOUND ABDOMEN LIMITED INDICATION: Elevated liver function tests COMPARISON: None FINDINGS: The liver is enlarged and increased in echogenicity; no focal lesion demonstrated. Main portal vein is patent, and normal direction of vascular flow demonstrated. The common bile duct diameter measures 5.0 mm. Gallbladder wall edema demonstrated without intraluminal calculi or sludge. No sonographic Jaimes's sign elicited by the ultrasound fork operator. Wall thickness measures 8.0 mm. Visible portions of the pancreas appear normal. The right kidney measures 11.0 x 7.1 x 5.8 cm,and is normal in echogenicity, without evidence for hydronephrosis.No shadowing stones demonstrated. Trace free fluid demonstrated within the right upper abdomen. IMPRESSION: Findings suggesting acute acalculus cholecystitis. Findings suggesting hepatomegaly and hepatic steatosis or other underlying hepatocellular disease process. PLAN NEURO: Minimize central acting medications as possible. Maintain fall precautions, adequate lighting during the day PULMONARY: Supplemental 02 as needed. Maintain aspiration precautions at all times CARDIOVASCULAR: Follow hemodynamics. Vital signs per facility protocol GI & NUTRITION: Continue with nutritional support. Continue stool softeners and laxatives as needed. KIDNEYS & ELECTROLYTES: Strict monitoring of intake, output and overall fluid balance. Avoid nephrotoxic medications to the extent possible. Medications to be dosed according to renal function. Monitor electrolytes and replace as needed ENDOCRINE: Maintain blood glucose between 100-180 at all times. Hypoglycemia protocol in place INFECTIOUS DISEASE: Trend temperature, WBC and procalcitonin level Follow cultures, deescalate antibiotics as soon as possible. Panculture if new onset fever ONCOLOGY/HEMATOLOGY/COAGULATION: Monitor for s/s of bleeding Monitor hemoglobin, coagulation studies as needed SKIN: Pressure ulcer prevention per facility protocol Specialty mattress ORTHO/REHAB: Continue PT/OT Prophylaxis: Continue GI and DVT prophylaxis Code Status: Full Resuscitation Disposition: TBD Other: Total patient care time exceeds 35 minutes excluding all procedures. STEPHEN BEASLEY Feb 02, 2024 12:33
[2024-02-02 16:00] VITALS: BP 112/62; PULSE 110; RESP 19; TEMP 98.2
[2024-02-02] MEDS: furoSEMIDE 40MG VIAL IV SCH (16:25)
--- NOTE | 2024-02-02 16:25 | NUR ---
AMA Patient sitting at the side of bed, awake, alert and responsive, requesting to leave to [facility], stating they had already spoke to MARGIE, made aware no one had given discharge orders or transfers order, spoke to Gianna FERNANDEZ regarding patient requesting transfer to [facility], new order given to transfer to [facility] per family request do to family leaving closer to that hospital, patient and spouse made aware of order given to transfer hospital refused to, requesting to leave against medical advise (AMA), Gianna FERNANDEZ, made aware, teaching given on importance continuing of care, voices understanding, Dr. Thompson, made aware of patient leaving AMA.
--- NOTE | 2024-02-02 16:59 | NUR ---
AMA Patient left facility at this time.
[2024-02-03 00:08] LABS: MYCOPLASMA AB IGM <770 U/mL (0-769)
--- NOTE | 2024-02-03 12:46 | DS ---
Discharge Summary Hospital Course Summary: Mr. Eldridge is a 48-year-old male with history of CHF, heart disease, hypertension, Lyme disease who presented to [facility] ED for evaluation of worsening shortness of breath. Patient patient reported that he presented to [facility] ED on 01/11/2024 evening was admitted diagnosed with pneumonia and was placed on isolation for evaluated for possible tuberculosis. IP [facility] patient was receiving Zithromax IV, Rocephin IV, and Solu- Medrol. The patient reports that he did not like the care of a [facility] and left AMA on 01/13/2024. at bedside reports that the sputum results for TB were never done and they were never updated on the patient's status therefore the patient left AMA. EKG: Sinus tachycardia, heart rate 116 beats per minute. Chest x-ray: 1. Right upper lobe infiltrate which could be early or mild pneumonia. 2. Mild cardiomegaly accentuated by a lordotic projection. Remarkable lab results: Hemoglobin 11.1, hematocrit 35.0, RBC 4.29. Lactic acid 2.3, GFR 75, total calcium 8.1, magnesium 1.9, CK 451, BNP 773. In ED patient received Rocephin1 g IV, azithromycin 500 mg IV, Tylenol 650 mg. ED provider reported that sepsis alert the patient presented to the ED with a temperature 101.3F, heart rate 117, respirations 20 bpm, BP 138/93, 95% on room air, which prompted the system for sepsis alert. ED physician request patient be admitted with the diagnosis of pneumonia involving right lung, right-sided pulmonary infiltrates suggestive of pneumonia versus early tuberculosis, and sepsis. Patient was admitted and he was started with oxygen supplementation IV antibiotics and he was evaluated by electronics computer mechanic and corporate associate. A 2D echo this showed that his EF was 25-30% with stage II diastolic dysfunction. Patient was also evaluated by corporate associate and tried to continue with TB workup, an AFB was sent. Further imaging was ordered which actually suggested acute acalculous cholecystitis from ultrasound of the abdomen and general surgeon has been consulted who recommended further imaging HIDA scan but patient apparently lives in [place] and would like to be transferred initially from hospital to hospital. I gave orders to proceed with transferred but patient decided to leave against medical advice after all. Patient was counseled that he will not be able to get any medications for discharge, he verbalized understanding and continued with AMA. Patient has signed paperwork. Coordinator Cardiopulmonary Services(s): Dr. Aguilar- corporate associate Dr. Morley, electronics computer mechanic Procedure(s): [facility] [address] [place], [place] [id number] IMAGING REPORT Signed PATIENT: PRATEEK ELDRIDGE MR#: [id number] : 1975 SEX: M AGE: 48 LOCATION: 4CH ORDER 1012 STATUS: ADM IN REPORT#: [id number] SERVICE 1007 REASON: EVALUATE LIVER ORDERING PHYSICIAN: LIBERTAD PALENCIA MD PROCEDURE: ABDRUQLTD - US ABDOMINAL RUQ\LTD ULTRASOUND ABDOMEN LIMITED INDICATION: Elevated liver function tests COMPARISON: None FINDINGS: The liver is enlarged and increased in echogenicity; no focal lesion demonstrated. Main portal vein is patent, and normal direction of vascular flow demonstrated. The common bile duct diameter measures 5.0 mm. Gallbladder wall edema demonstrated without intraluminal calculi or sludge. No sonographic Jaimes's sign elicited by the ultrasound compression molding machine operator. Wall thickness measures 8.0 mm. Visible portions of the pancreas appear normal. The right kidney measures 11.0 x 7.1 x 5.8 cm,and is normal in echogenicity, without evidence for hydronephrosis.No shadowing stones demonstrated. Trace free fluid demonstrated within the right upper abdomen. IMPRESSION: Findings suggesting acute acalculus cholecystitis. Findings suggesting hepatomegaly and hepatic steatosis or other underlying hepatocellular disease process. DICTATED BY: KYAW HAHN MD DATE: 02/01/24 1242 ELECTRONICALLY SIGNED BY: KYAW HAHN MD DATE: 02/01/24 1247 [facility] [address] [id number] IMAGING REPORT Signed PATIENT: PRAETEK ELDRIDGE MR#: [id number] : 1975 SEX: M AGE: 48 LOCATION: [facility] ORDER 1713 STATUS: ADM IN REPORT#: [id number] SERVICE 1716 REASON: Evaluate for possible TB ORDERING PHYSICIAN: STEPHEN BEASLEY PROCEDURE: CHEST WO - CT CHEST W/O CONTRAST CT CHEST W/O CONTRAST HISTORY: Possible TB COMPARISON: None TECHNIQUE: Multiple sequential axial images of the chest were obtained from the thoracic inlet through upper abdomen. Patient was not given contrast through intravenous route. FINDINGS: There are bilateral reticular nodular pulmonary infiltrates. Respiratory tuberculosis cannot be excluded and clinical correlation is recommended. Fatty changes of the liver are noted. Tiny right pleural effusion is seen. There is no evidence of pneumothorax. There are normal size mediastinal and hilar lymph nodes. The heart is not enlarged. Degenerative changes of the thoracolumbar spine are present. There is no evidence of adrenal nodule. Tubular shaped radiopaque density is seen in the stomach may be related to postop changes versus foreign body. IMPRESSION: 1. There are bilateral reticular nodular pulmonary infiltrates. Respiratory tuberculosis cannot be excluded and clinical correlation is recommended. Fatty changes of the liver are noted. Tiny right pleural effusion is seen. CT was performed with one or more following dose reduction techniques: automated exposure control, adjustment of the mA and kv according to patient's size, or use of a iterative reconstruction technique. DICTATED BY: MIRNA SANTO MD DATE: 01/30/242013 ELECTRONICALLY SIGNED BY: MIRNA SANTO MD DATE: 01/30/242017 [address] [address] IMAGING REPORT Signed PATIENT: PRATEEK ELDRIDGE MR#: [id number] : 1975 SEX: M AGE: 48 LOCATION: [facility] ORDER 1100 STATUS: ADM IN REPORT#: [id number] SERVICE 1040 REASON: chf ORDERING PHYSICIAN: TRINITY VELASCO PROCEDURE: ECHO CMP - ECHO 2-D COMPLETE APPROVED REPORT EXAM: Two-dimensional and M-mode echocardiogram with Doppler and color Doppler. Study Details: Hx: CHF, Heart Disease, Hypertension, Lyme disease INDICATION ICD: Congestive heart failure 2D Dimensions RVDd 5.3 cm LVEF(%) 46.3 (>50%) LVED Vol(simp.) 238.2 mL IVSd 1.2 (0.7-1.1cm) FS(%) 24 % LVES Vol(simp.) 178.5 mL LVDd 6.3 (3.8-5.6cm) LA (2D) 5.9 (1.6-4.0cm) LVEF(%, simp.) 25 % PWd 1.6 (0.7-1.1cm) Ao Root(2D) 3.6 (2.0-3.7cm) LA ESV INDEX (4CH) 50.20 mL/m2 IVSs 1.5 cm LVOT diam 2.2 (1.8-2.4cm) LA ESV INDEX (2CH) 66.00 mL/m2 LVDs 4.8 (2.5-4.0cm) IVC diam 2.5 cm PWs 1.8 cm Deformation Strain Apical 4 -8.0 % Apical 2 -5.0 % Apical 3 -6.0 % Global Strain -6.0 % Aortic Valve AoV VTI 0.1 m Ao Mean GR 1.0 mmHg LVOT VTI 0.11 m WILLIAM (VMAX) 5.1 cm2 Al P1/2T 632 ms WILLIAM (VTI) 5.1 cm2 Mitral Valve MV E Vmax 112.5 cm/s DECEL Time 123 ms MV A Vmax 60.7 cm/s P 1/2 T 34 ms E/A ratio 1.9 MVA (PHT) 6.5 cm2 MR Max PG 39 mmHg TDI E/E' Medial 18.4 E/E' Lateral 15.4 Medial E' Peak V 6.10 cm/s Lateral E' Peak V 7.30 cm/s Pulmonary Valve PV VTI 0.09 m PV Mean GR 1 mmHg Tricuspid Valve TR Vmax 1.8 m/s RAP (EST) 15 mmHg RVSP 28.0 mmHg TR Peak GR 13.0 mmHg Left Ventricle The left ventricle is severely dilated. There is global hypokinesis of the left ventricle. Mild concentric left ventricular hypertrophy. LVEF is 25-30%. Stage II, diastolic dysfunction. Right Ventricle The right ventricle is severely dilated. Right ventricular systolic function is reduced. Atria The left atrium is severely dilated. The right atrium is severely dilated. Aortic Valve Aortic valve is trileaflet and opens well. Mild aortic regurgitation is present. There is no aortic valvular stenosis. Mitral Valve The mitral valve is mildly thickened.Anterior mitral valve leaflet is prolapsed. There is moderate mitral valve regurgitation noted. There is no mitral valve stenosis. Tricuspid Valve The tricuspid valve is normal in structure and function. There is moderate tricuspid valve regurgitation noted. Pulmonic Valve The pulmonary valve is normal in structure and function. There is mild pulmonic valvular regurgitation. Great Vessels The aortic root is normal in size. IVC is dilated and collapses <50% with inspiration. Pericardium No pericardial effusion. Other Information Quality : Adequate Conclusion The left ventricle is severely dilated. Mild concentric left ventricular hypertrophy. LVEF is 25-30%. Stage II, diastolic dysfunction. There is global hypokinesis of the left ventricle. The right ventricle is severely dilated. Right ventricular systolic function is reduced. Mild aortic regurgitation is present. There is moderate mitral valve regurgitation noted. There is moderate tricuspid valve regurgitation noted. DICTATED BY: IFRAH MORLEY MD DATE: 01/30/24 1357 ELECTRONICALLY SIGNED BY: IFRAH MORLEY MD DATE: 01/30/[address] [address] IMAGING REPORT Signed PATIENT: PRATEEK ELDRIDGE MR#: [id number] : 1975 SEX: M AGE: 48 LOCATION: [facility] ORDER 1639 STATUS: [facility] REPORT#: [id number] SERVICE 1638 REASON: chest ORDERING PHYSICIAN: PRASHANT FLANAGAN MD PROCEDURE: CXR1VW - CHEST 1VW CHEST 1VW REASON: chest COMPARISON: None. FINDINGS: There is mild cardiomegaly accentuated by lordotic projection. There is some focal infiltrate in the right upper lobe which could be early or mild pneumonia. There is no pulmonary vascular congestion. There are no pleural effusions any thorax appears normal. IMPRESSION: 1. Right upper lobe infiltrate which could be early or mild pneumonia. 2. Mild cardiomegaly accentuated by a lordotic projection. DICTATED BY: ROSE GRAHAM MD DATE: 11/25/24 1727 ELECTRONICALLY SIGNED BY: ROSE GRAHAM MD DATE: 01/29/24 1730 Assessment/Plan: Discharge diagnoses Acalculous cholecystitis by abdominal ultrasound, POA CHF exacerbation LVEF 20-25%, per [facility] echo on 01/13/2024 Grade 3 diastolic dysfunction, per [facility] echo on 01/13/2024 Multifocal pneumonia possible secondary to crack lung secondary to cocaine use Lung Infiltrates, rule out TB Negative for PE, per CTA on 01/11/2024 at [facility] Respiratory alkalosis Rhabdomyolysis, CK 451 Acute on chronic kidney disease, GFR 75 Anemia chronic disease Polysubstance abuse, + cocaine on 01/29/24 Hypertension Coronary artery disease Obese, BMI 37.4 History of lyme disease History of a polysubstance abuse positive cocaine and THC PLAN: -Admit to Medical floor with continuous telemetry monitoring -Monitor respiratory status closely. -Continue oxygen therapy as needed. Titrate oxygen prn to keep Spo2>/+=92%. -RT to provide IS and education on use. -Robitussin DM as needed cough. -Lasix 40 b.i.d. -ID and pulmonology on board we will follow their recommendations Monitor AFBs results -Precaution and monitor for fluid overload due to CHF/elevated BNP, low LVEF. -Continue antibiotic therapy: Doxycycline IV and Rocephin IV -p.r.n. medications for: Fever, pain management, nausea, vomiting, constipation, hypertension -Glucometer checks AC & HS needed with insulin regular sliding scale coverage as needed. -Acid-fast bacilli (AFB) -regarding acalculous cholecystitis, we are awaiting for GI recommendation, patient will probably have surgical consult -AM labs. - Monitor renal and liver function - Monitor electrolytes and treat accordingly. -GI and DVT prophylaxis Case seen and discussed with Dr. Fitzpatrick, above plan was formulated Discharge Instructions: Patient left against medical advice Time spent arranging discharge: 31-60 minutes ATTESTATION BY PHYSICIAN I have seen and examined the patient. I reviewed the documentation, medical d ecision making, and treatment plan as noted by the mid-level provider above. I agree with the findings and plan of care. Kesha Fitzpatrick MD, [facility] Feb 03, 2024 12:46
[2024-02-04 23:08] LABS: QUANTIFERON MITOGEN VALUE >10.00 IU/mL (.); QUANTIFERON NIL VALUE 0.01 IU/mL (.)
== END 2024-02-02 17:00 | disposition left against medical advice (07) | DRG 291 ==
LOC: EEVIPCON 16:31 → EDH 16:31 → EDHIP 18:42 → 4CH 20:17
PROVIDERS: ADMIT Hospitalist; ATTEND Hospitalist
DX: I13.0 Hypertensive heart and chronic kidney disease with heart failure and stage 1 through stage 4 chronic kidney disease, or unspecified chronic kidney disease (principal); I50.43 Acute on chronic combined systolic (congestive) and diastolic (congestive) heart failure; J18.9 Pneumonia, unspecified organism; E87.4 Mixed disorder of acid-base balance; M62.82 Rhabdomyolysis; N17.9 Acute kidney failure, unspecified; K80.00 Calculus of gallbladder with acute cholecystitis without obstruction; I42.0 Dilated cardiomyopathy; N18.9 Chronic kidney disease, unspecified; D63.1 Anemia in chronic kidney disease; I08.0 Rheumatic disorders of both mitral and aortic valves; E66.01 Morbid (severe) obesity due to excess calories; I25.10 Atherosclerotic heart disease of native coronary artery without angina pectoris; I37.1 Nonrheumatic pulmonary valve insufficiency; I08.3 Combined rheumatic disorders of mitral, aortic and tricuspid valves; F14.10 Cocaine abuse, uncomplicated; Z53.29 Procedure and treatment not carried out because of patient's decision for other reasons; Z68.37 Body mass index [BMI] 37.0-37.9, adult; Z79.899 Other long term (current) drug therapy; Z79.82 Long term (current) use of aspirin; Z86.19 Personal history of other infectious and parasitic diseases; Z90.49 Acquired absence of other specified parts of digestive tract
CPT/HCPCS: 36415; 36600; 71045; 71250; 76705; 80048; 80053; 80061; 80074; 80305; 81001; 82550; 82803; 82948; 82977; 83036; 83605; 83615; 83735; 83880; 84100; 84443; 84484; 84550; 85025; 85610; 85730; 86015; 86235; 86381; 86480; 86701; 86738; 87040; 87071; 87086; 87116; 87205; 87206; 87390; 87556; 87635; 87804; 93005; 93306; 93356; 94640; 94664; 94667; 94668; 96365; 96366; 96368; 99291; G0378; J0456; J0696; J1650; J1940; J2405; J3475; J3490